=== PATIENT | female | born 1985 | race African-American/Black ===

== ENCOUNTER → 2016-06-28 | Outpatient (CLI) | payer SELFPAY | LOC: RAD 09:30 | PROVIDERS: ATTEND Nurse Practitioner Women's Health | DX: Z34.82 Encounter for supervision of other normal pregnancy, second trimester (principal) | CPT/HCPCS: 76805 ==

== ENCOUNTER 2016-10-03 08:54 | Inpatient (IN) | payer MEDICAID ==
[2016-10-03] MEDS ORDERED: MEASLES,MUMPS&RUBELLA VACC/PF 0.5 ML VIAL SUBCUT PRN (09:16)
[2016-10-03] MEDS ORDERED: OXYTOCIN/NORMAL SALINE 1,000 ML IV PRN (09:16)
[2016-10-03] MEDS ORDERED: DIPH/PERTUSS(ACELL)/TETANUS VAC/PF 0.5 ML SYR (>=10YO) IM PRN (09:16)
[2016-10-03] MEDS ORDERED: BENZOCAINE/MENTHOL AEROSOL SPRAY 56 ML TOP PRN (09:16)
[2016-10-03] MEDS ORDERED: ZOLPIDEM TARTRATE 5 MG TABLET PO PRN (09:16)
[2016-10-03] MEDS ORDERED: DIBUCAINE 1% OINTMENT 28 GM TP PRN (09:16)
[2016-10-03] MEDS ORDERED: ACETAMINOPHEN WITH CODEINE #3 TABLET PO PRN (09:16)
[2016-10-03] MEDS ORDERED: ACETAMINOPHEN 325 MG TABLET ONE (09:53)
[2016-10-03] MEDS ORDERED: ACETAMINOPHEN WITH CODEINE #3 TABLET ONE (10:00)
[2016-10-03 10:09] LABS: ABSOLUTE LYMPHOCYTES (AUTO) 1.1 10^3/uL (0.5-4.7); ABSOLUTE MONOCYTES (AUTO) 0.4 10^3/uL (0.1-1.4); ABSOLUTE NEUT (AUTO) 3.3 10^3/uL (1.7-8.2); BASOPHILS % (AUTO) 0.1 % (0-2); EOSINOPHILS % (AUTO) 0.1 % (0-6); HEMATOCRIT 33.9 % (36.0-47.0); HEMOGLOBIN 11.1 g/dL (12.0-15.5); HGB HCT DIFFERENCE -0.6; LYMPHOCYTES % (AUTO) 22.5 % (13-45); MEAN CORPUSCULAR HEMOGLOBIN 25.9 pg (27.0-33.4); MEAN CORPUSCULAR HGB CONC 32.8 g/dL (32.0-36.0); MEAN CORPUSCULAR VOLUME 79 fl (80-97); MONOCYTES % (AUTO) 8.3 % (3-13); RED CELL DISTRIBUTION WIDTH 15.8 % (11.5-14.0); WHITE BLOOD COUNT 4.8 10^3/uL (4.0-10.5)
[2016-10-03] MEDS ORDERED: OXYTOCIN 10 UNIT/ML VIAL ONE (10:15)
[2016-10-03] MEDS ORDERED: MISOPROSTOL 0.2 MG TABLET ONE (10:15)
--- NOTE | 2016-10-03 12:05 | Delivery Summary ---
Del Sum A-C Datetime Report Generated by CPN: 10/03/2016 12:05 DELIVERY PERSONNEL DELIVERY PERSONNEL: [id number] Delivery Doctor:: Nirmala Woody CNM Labor and Delivery Nurse:: Ellen Simental RN Labor and Delivery Nurse:: NERI Garcia Talcer/[facility]: Shelby Reese [facility] II MATERNAL INFORMATION Delivery Anesthesia: None Medications After Delivery: Pitocin 10 Units IM Estimated Blood Loss (ml): 200 Maternal Complications: Precipitous Labor (<3hrs) Provider Comments: SVDVM over intact perineum, infant vigorous, to mothers abd, cord clamped x2. Placenta intact via spencer. Minimal EBL 200. Apgars 9,10. Pitocin 10mg given IM. Mother and stable. LABOR SUMMARY EDC: 09/30/2016 00:00 No. Babies in Womb: 1 Attempted: No Labor Anesthesia: None LABOR INFORMATION Reason for Induction: Not Applicable Onset of Labor: 10/03/2016 07:30 Complete Dilatation: 10/03/2016 08:46 Oxytocin: N/A Group B Beta Strep: positive Antibiotics # of Doses: 0 Steroids Given: None Reason Steroids Not Administered: Not Applicable MEMBRANES Membranes Rupture Method: Spontaneous Rupture of Membranes: 10/03/2016 07:30 Length of Rupture (hr): 1.28 Amniotic Fluid Color: Clear Amniotic Fluid Amount: Moderate STAGES OF LABOR Stage 1 hr: 1 Stage 1 min: 16 Stage 2 hr: 0 Stage 2 min: 1 Stage 3 hr: 0 Stage 3 min: 4 Total Time in Labor hr: 1 Total Time in Labor min: 21 VAGINAL DELIVERY Episiotomy: None Laceration Extension: N/A Laceration Type: None Laceration Repair: Not Applicable Laceration Repair Note: No lacerations Sponge Count Correct: N/A Sharps Count Correct: N/A CSECTION DELIVERY Primary Indication: N/A Secondary Indication: N/A CSection Urgency: N/A CSection Incidence: N/A Labor: N/A Elective: N/A CSection Incision: N/A BABY A INFORMATION Delivery Date/Time: 10/03/2016 08:47 Method of Delivery: Vaginal Born in Route : No : N/A Forceps: N/A Vacuum Extraction: N/A Shoulder Dystocia : No PRESENTATION/POSITION BABY A Presentation: Cephalic Cephalic Presentation: Vertex Vertex Position: Left Occipital Anterior Breech Presentation: N/A PLACENTA INFORMATION BABY A Placenta Delivery Time : 10/03/2016 08:51 Placenta Method of Delivery: Spontaneous Placenta Status: Delivered SCORES BABY A Heart Rate 1 min: >100 bpm Resp Effort 1 min: Good Cry Reflex Irritability 1 min: Cough or Sneeze or Pulls Away Muscle Tone 1 min: Active Motion Color 1 min: Body Weinert, Extremities Blue Resuscitation Effort 1 min: Tactile Stimulation SCORE 1 MIN: 9 Heart Rate 5 min: >100 bpm Resp Effort 5 min: Good Cry Reflex Irritability 5 min: Cough or Sneeze or Pulls Away Muscle Tone 5 min: Active Motion Color 5 min: Completely Weinert Resuscitation Effort 5 min: N/A SCORE 5 MIN: 10 INFORMATION BABY A Gestational Age at Delivery: 40.3 Gestational Status: Full Term- 39- 40.6 Weeks Infant Outcome : Liveborn Infant Condition : Stable Infant Sex: Male IDENTIFICATION BABY A Verification Date/Time: 10/03/2016 09:14 ID Band Number: [id number] Mother's Name Verified: Yes RN Verifying Infant: Lydia Simental RN/ LKavin Escalante RN WEIGHT/LENGTH BABY A Infant Birthweight (gm): 4055 Infant Weight (lb): 8 Weight (oz): 15 Length (in): 23.00 Infant Length (cm): 58.42 CORD INFORMATION BABY A No. 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 Veronika RN Transferred To: Remains with Mother BABY B INFORMATION : N/A SIGNATURES Assignment: Melida Craig MD Signature: with User ID: Gina : with User ID: Gina : I was personally available for consultation and serving as supervising physician for the MLP.
[2016-10-03] MEDS: SENNOSIDES/DOCUSATE 8.6-50 MG 1 EACH TABLET PO SCH (15:52)
[2016-10-03] MEDS: PRENATAL VITAMIN W-O CA NO5/FE FUMARATE/FA CAPSULE PO SCH (15:52)
[2016-10-03] MEDS: DOCUSATE SODIUM 100 MG CAPSULE PO SCH ×2 (15:52→17:31)
[2016-10-03] MEDS: FERROUS SULFATE 325 MG TABLET PO SCH ×2 (15:52→17:30)
[2016-10-03] MEDS: IBUPROFEN 800 MG TABLET PO SCH ×2 (15:52→21:06)
[2016-10-03] MEDS: ACETAMINOPHEN WITH CODEINE #3 TABLET PO PRN (16:25)
--- NOTE | 2016-10-03 16:46 | L&D Flow Sheet ---
LD Flowsheet Datetime Report Generated by CPN: 10/03/2016 16:45 Datetime: 10/03/2016 12:17 Vital Signs Stage of : Recovery (Rucsandra Kamille, RN) Datetime: 10/03/2016 12:07 Vital Signs Stage of : Recovery (Baciliomargarita Simental, BHAVYA) NBP Sys/Kenia/Mean (mmHg): 149 (QS system process) : 72 (QS system process) : 103 (QS system process) Pulse: 62 (QS system process) Respirations: 18 (Wagnerandra Simental, ) Pain Pain Scale: 2 (Ellen Simental, BHAVYA) Pain Presence: Intermittent (Ellen Simental, RN) Pain Type: Cramping (Wagnerandra Simental, RN) Pain Location: Abdomen (Ellen Simental, RN) Pain Goal: 3 (Wagnerandra Simental, RN) Pain Relief Measures: Comfort Measures (Ellen Simental, RN) Datetime: 10/03/2016 11:51 Vital Signs Stage of : Recovery (Rucsandra Kamille, RN) NBP Sys/Kenia/Mean (mmHg): 150 (QS system process) : 67 (QS system process) : 96 (QS system process) Pulse: 81 (QS system process) Respirations: 16 (Rucsandra Kamille, RN) Pain Pain Scale: 2 (Rucsandra Kamille, RN) Pain Presence: Intermittent (Rucsandra Kamille, RN) Pain Type: Cramping (Rucsandra Kamille, RN) Pain Location: Abdomen (Ellen Kamille, RN) Pain Goal: 3 (Wagnerrachel Kamille, RN) Pain Relief Measures: Comfort Measures (Bacilioalyserachel Kamille, RN) Datetime: 10/03/2016 11:45 Vital Signs Stage of : Recovery (Ellen Kamille, RN) Datetime: 10/03/2016 11:40 Vital Signs Stage of : Recovery (Rucsandra Kamille, RN) NBP Sys/Kenia/Mean (mmHg): 148 (QS system process) : 70 (QS system process) : 101 (QS system process) Pulse: 81 (QS system process) Pain Pain Scale: 2 (Rucsandra Kamille, RN) Pain Presence: Intermittent (Rucsandra Kamille, RN) Pain Type: Cramping (Rucsandra Kamille, RN) Pain Location: Abdomen (Rucsandra Kamille, RN) Pain Goal: 3 (Rucsandra Kamille, RN) Pain Relief Measures: Comfort Measures (Rucsandra Kamille, RN) Datetime: 10/03/2016 11:36 Vital Signs Stage of : Recovery (Ellen Simental RN) NBP Sys/Kenia/Mean (mmHg): 147 (QS system process) : 71 (QS system process) : 101 (QS system process) Pulse: 61 (QS system process) Respirations: 18 (Ellen Simental, ) Pain Pain Scale: 2 (Wagnerandra Simental, ) Pain Pres[facility]: [facility]termittent ([facility] Pain Type: Cramping (Bacilioandra Simental, RN) Pain Location: Abdomen (Baciliomargarita Simental, RN) Pain Goal: 3 (Bacilioandra Simental, RN) Pain Relief Measures: Comfort Measures (Bacilioandra Simental, RN) Datetime: 10/03/2016 11:21 Vital Signs Stage of : Recovery (Ellen Simental RN) NBP Sys/Kenia/Mean (mmHg): 150 (QS system process) : 80 (QS system process) : 106 (QS system process) Pulse: 57 (QS system process) Pain Pain Scale: 2 (Ellen Simental RN) Pain Presence: Intermittent (Ellen Simental RN) Pain Type: Cramping (Ellen Simental, BHAVYA) Pain Location: Abdomen (Ellen Simental RN) Pain Goal: 3 (Ellen Simental RN) Pain Relief Measures: Comfort Measures (Rucsandra Kamille, RN) Datetime: 10/03/2016 11:06 Vital Signs Stage of : Recovery (Ellen Simental RN) NBP Sys/Kenia/Mean (mmHg): 150 (QS system process) : 72 (QS system process) : 104 (QS system process) Pulse: 71 (QS system process) Pain Pain Scale: 2 (Ellen Simental RN) Pain Presence: Intermittent (Ellen Simental RN) Pain Type: Cramping (Rucsandra Kamille, RN) Pain Location: Abdomen (Ellen Simental, RN) Pain Goal: 3 (Rucsandra Kamille, RN) Pain Relief Measures: Comfort Measures (Ellen Simental, RN) Datetime: 10/03/2016 11:02 NBP Sys/Kenia/Mean (mmHg): 189 (QS system process) : 129 (QS system process) : 145 (QS system process) Pulse: 77 (QS system process) Datetime: 10/03/2016 11:00 Vital Signs Stage of : Recovery (Rucsandra Kamille, RN) Temperature (F): 99.2 (Ellen Simental, RN) Temperature (C): 37.3 (QS system process) Datetime: 10/03/2016 10:23 Vital Signs Stage of : Recovery (Ellen Simental, RN) NBP Sys/Kenia/Mean (mmHg): 137 (QS system process) : 91 (QS system process) : 106 (QS system process) Pulse: 68 (QS system process) Pain Pain Scale: 2 (Rucsandra Kamille, RN) Pain Presence: Intermittent (Rucsandra Kamille, RN) Pain Type: Cramping (Rucsandra Kamille, RN) Pain Location: Abdomen (Rucsandra Kamille, RN) Pain Goal: 3 (Rucsandra Kamille, RN) Datetime: 10/03/2016 10:15 Vital Signs Stage of : Recovery (Rucsandra Kamille, RN) Datetime: 10/03/2016 10:12 Vital Signs Stage of : Recovery (Ellen Simental, RN) Datetime: 10/03/2016 10:08 Vital Signs Stage of : Recovery (Ellen Simental, RN) NBP Sys/Kenia/Mean (mmHg): 138 (QS system process) : 89 (QS system process) : 109 (QS system process) Pulse: 67 (QS system process) Respirations: 18 (Ellen Simental, RN) Pain Pain Scale: 2 (Rucsandra Kamille, RN) Pain Presence: Intermittent (Rucsandra Kamille, RN) Pain Type: Cramping (Rucsandra Kamille, RN) Pain Location: Abdomen (Rucsandra Kamille, RN) Pain Goal: 3 (Rucsandra Kamille, RN) Datetime: 10/03/2016 10:00 Vital Signs Stage of : Recovery (Rucsandra Kamille, RN) Pain Pain Scale: 2 (Rucsandra Kamille, RN) Pain Presence: Intermittent (Rucsandra Kamille, RN) Pain Type: Cramping (Rucsandra Kamille, RN) Pain Location: Abdomen (Rucsandra Kamille, RN) Pain Goal: 3 (Rucsandra Kamille, RN) Pain Relief Measures: Pain Medication Given (Rucsandra Kamille, RN) Datetime: 10/03/2016 09:53 Vital Signs Stage of : Recovery (Rucsandra Kamille, RN) NBP Sys/Kenia/Mean (mmHg): 139 (QS system process) : 84 (QS system process) : 102 (QS system process) Pulse: 62 (QS system process) Pain Pain Scale: 2 ([facility] Kamille, ) Pain Presence: Intermittent ([facility], ) Pain Type: Cramping ([facility], ) Pain Location: Abdomen ([facility]) Pain Goal: 3 ([facility], ) Pain Relief Measures: Comfort Measures (Annotations: pain medication requested. ) ([facility], ) Datetime: 10/03/2016 09:39 Vital Signs Stage of : Recovery ([facility] [place] [facility], ) NBP Sys/Kenia/Mean (mmHg): 139 (QS system process) : 73 (QS system process) : 97 (QS system process) Pulse: 63 (QS system process) Respirations: 18 ([facility] [place] [facility], ) Pain Pain Scale: 2 ([facility], ) Pain Presence: Intermittent ([facility], ) Pain Type: Cramping ([facility], ) Pain Location: Abdomen ([facility], ) Pain Goal: 3 ([facility] [place], ) Pain Relief Measures: Comfort Measures ([facility], ) Datetime: 10/03/2016 09:38 Vital Signs Stage of : Recovery (Rucsandra Kamille, RN) Datetime: 10/03/2016 09:37 Vital Signs Stage of : Recovery (Rucsandra Kamille, RN) Datetime: 10/03/2016 09:23 Vital Signs Stage of : Recovery (Ellen Simental RN) NBP Sys/Kenia/Mean (mmHg): 138 (QS system process) : 74 (QS system process) : 99 (QS system process) Pulse: 64 (QS system process) Respirations: 18 (Ellen Simental RN) Temperature (F): 98.7 ([facility] RN) Temperature (C): 37.1 (QS system process) Pain Pain Scale: 2 (Ellen Simental RN) Pain Presence: Intermittent (Ellen Simental RN) Pain Type: Cramping (Ellen Simental, BHAVYA) Pain Location: Abdomen (Ellen Simental RN) Pain Goal: 3 (Baciliomargarita Simental RN) Pain Relief Measures: Comfort Measures (Ellen Simental RN) Datetime: 10/03/2016 09:08 Vital Signs Stage of : Recovery (Ellen Simental, BHAVYA) NBP Sys/Kenia/Mean (mmHg): 134 (QS system process) : 74 (QS system process) : 98 (QS system process) Pulse: 54 (QS system process) Pain Pain Scale: 2 (Ellen Simental RN) Pain Presence: Intermittent (Ellen Simental RN) Pain Type: Cramping (Ellen Simental RN) Pain Location: Abdomen (Rucsandra Kamille, RN) Pain Goal: 3 (Rucsandra Kamille, RN) Pain Relief Measures: Comfort Measures (Rucsandra Simental, RN) Datetime: 10/03/2016 08:53 Vital Signs Stage of : Recovery (Rucsandra Kamille, RN) NBP Sys/Kenia/Mean (mmHg): 138 (QS system process) : 91 (QS system process) : 108 (QS system process) Pulse: 73 (QS system process) Respirations: 18 (Rucsandra Kamille, RN) Pain Pain Scale: 2 (Ellen Simental RN) Pain Presence: Intermittent (Ellen Simental RN) Pain Type: Cramping (Ellen Simental RN) Pain Location: Abdomen (Ellen Simental RN) Pain Goal: 3 (Ellen Simental RN) Pain Relief Measures: Comfort Measures (Ellen Simental RN) Datetime: 10/03/2016 08:52 Vital Signs Stage of : Recovery (Ellen Simental RN) Membranes Ruptured Date/Time: 10/03/2016 07:30 (Ellen Simental RN) Membranes Rupture Method: Spontaneous (Ellen Simental RN) Amniotic Fluid Color: Clear (Ellen Simental RN) Amniotic Fluid Amount: Moderate (Ellen Simental RN) Datetime: 10/03/2016 08:48 Vital Signs Stage of : Recovery (Rucsandra Kamille, RN) Datetime: 10/03/2016 08:47 Stage 2 Stage 2 Comments: of viable baby boy, see delivery summary (Ellen Simental, RN) Datetime: 10/03/2016 08:46 Vaginal Exam Dilatation (cm): 10.0 (Ellen Simental, BHAVYA) Effacement (%): 100 (Ellen Simental RN) Station: 3 (Ellen Simental RN) Exam by: Bebe Woody CNM (Ellen Simental, BHAVYA) Vaginal Exam Comments: RayshawnKavin Woody CNM (Ellen Simental, BHAVYA) Communication Communication Comments: Danica Woody CNKristen at bedside for delivery (Ellen Simental, BHAVYA) Datetime: 10/03/2016 08:44 Vaginal Exam Dilatation (cm): 9.5 (Ellen Simental RN) Effacement (%): 100 (Ellen Simental RN) Station: 1 (Ellen Simental RN) Exam by: Danica Woody JERRY (Ellen Simental RN) Vaginal Bleeding: None (Ellen Simental RN) Datetime: 10/03/2016 08:43 Communication Communication Comments: Pt arrives to unit complaining of needing to push, Pt changed into gown. (Ellen Simental RN)
--- NOTE | 2016-10-03 16:46 | L&D General Admission ---
General Admit Datetime Report Generated by CPN: 10/03/2016 16:45 INFORMATION Patient Age: 30 (10/03/2016 08:55:QS system process) Patient Age: 30 (10/03/2016 08:52:Ellen Simental RN) EDC: 09/30/2016 00:00 (10/03/2016 08:52:Ellen Simental RN) : 6 (10/03/2016 08:52:Ellen Simental RN) Para: 5 (10/03/2016 08:52:Ellen Simental RN) Term: 4 (10/03/2016 08:52:Ellen Simental RN) : 1 (10/03/2016 08:52:Ellen Simental RN) Spontaneous Abortions: 0 (10/03/2016 08:52:Ellen Simental RN) Induced Abortions: 0 (10/03/2016 08:52:Ellen Simental RN) Livin (10/03/2016 08:52:Ellen Simental RN) Cesareans: 0 (10/03/2016 08:52:Ellen Simental RN) VBACs: 0 (10/03/2016 08:52:Ellen Simental RN) Ectopic: 0 (10/03/2016 08:52:Ellen Simental RN) Multiple Births: 0 (10/03/2016 08:52:Ellen Simental RN) Baby, Number in Womb: 1 (10/03/2016 08:52:Ellen Simental RN) CARE Primary Games Manager: [facility] (10/03/2016 08:52:Ellen Simental RN) Games Manager Other: [facility] (10/03/2016 08:52:Ellen Simental RN) Month of 1st Visit: 27 weeks (10/03/2016 08:52:Ellen Simental RN) Adequate Care: No (10/03/2016 08:52:Ellen Simental RN) Height (in): 68 (10/03/2016 12:21:QS system process) Height (in): 68 (10/03/2016 09:56:QS system process) Height (in): 27 (10/03/2016 08:52:QS system process) ALLERGIES Medication Allergy: No (10/03/2016 08:52:Ellen Simental RN) Medication Allergies: No Known Allergies (10/03/2015) (10/03/2016 08:55:QS system process) Latex Allergy: No Latex Allergies (10/03/2016 08:52:Ellen Simental RN) COMMUNICATION Primary Language: Spanish (10/03/2016 08:52:Ellen Simental RN) Medical Tx Preferred Language: Spanish (10/03/2016 08:52:Mindy Solis RN) Communication Barrier(s): None (10/03/2016 08:52:Ellen Simental RN) DEMOGRAPHICS Address: [address] [place] [address] (10/03/2016 08:55:QS system process) Address: [address] [place] [address] (10/03/2016 08:52:Ellen Simental RN) Zipcode: [address] (10/03/2016 08:55:QS system process) Zipcode: [address] (10/03/2016 08:52:Ellen Simental RN) County: [place] (10/03/2016 08:52:Ellen Simental RN) Home (10/03/2016 08:55:QS system process) Home (10/03/2016 08:52:Ellen Simental RN) SSN: [id number] (10/03/2016 08:55:QS system process) Next of Kin Name: JANET CABRERA (10/03/2016 08:55:QS system process) Next of Kin Name: Janet Cabrera (10/03/2016 08:52:Ellen Simental RN) Next of Kin (10/03/2016 08:55:QS system process) Next of Kin (10/03/2016 08:52:Ellen Simental RN) Next of Kin Relationship: MO (10/03/2016 08:55:QS system process) Next of Kin Relationship: Mother (10/03/2016 08:52:Ellen Simental RN) Date of : 1985 (10/03/2016 08:55:QS system process) Date of : 1985 (10/03/2016 08:52:Ellen Simental RN) Marital Status: Single (10/03/2016 08:55:QS system process) Sex: Female (10/03/2016 08:55:QS system process) Sex: Female (10/03/2016 08:52:Ellen Simental RN) Race: (10/03/2016 08:55:QS system process) Ethnicity: Non- or (10/03/2016 08:55:QS system process) Ethnicity: Non- or (10/03/2016 08:52:Ellen Simental RN) Congregation: None (10/03/2016 08:55:QS system process) DRUG AND ALCOHOL USE Alcohol: No (10/03/2016 08:52:Ellen Simental RN) Cigarettes: Never Smoker. 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: [facility] (10/03/2016 08:52:Ellen Simental RN) Feeding Preference: Formula (10/03/2016 08:52:Ellen Simental RN) Benefit of Breast Feed Discussed: Yes (10/03/2016 08:52:Ellen Simental RN) Circumcision: Yes (10/03/2016 08:52:Ellen Simental RN) Classes Attended: No (10/03/2016 08:52:Ellen Simental RN) Tubal Ligation: Yes (10/03/2016 08:52:lElen Simental RN) Tubal Authorization Signed: Yes (10/03/2016 08:52:Ellen Simental RN) Consent: N/A (10/03/2016 08:52:Ellen Simental RN) Consent Signed: N/A (10/03/2016 08:52:Ellen Simental RN) Pain Management Plans: None (10/03/2016 08:52:Ellen Simental RN) Plans for Labor and Delivery: None (10/03/2016 08:52:Ellen Simental RN) Support Person: Janet (10/03/2016 08:52:Ellen Simental RN) Support Person Relationship: Mother (10/03/2016 08:52:Ellen Simental RN) Cultural/Spritual Practice: No (10/03/2016 08:52:Ellen Simental RN) Spir/Cult Dietary Needs: No (10/03/2016 08:52:Ellen Simental RN) LIVING SITUATION/DISCHARGE PLAN Living Arrangements: House (10/03/2016 08:52:Ellen Simental RN) Adequate Access to:: Electric; Heat; Refrigeration; Plumbing/Running water; Phone; Transportation (10/03/2016 08:52:Ellen Simental RN) WIC Program: No (10/03/2016 08:52:Ellen Simental RN) Discharge Electronic Court Recorder Person: Janet (10/03/2016 08:52:Ellen Simental RN) Person to Help after Discharge: Janet (10/03/2016 08:52:Ellen Simental RN) Currently Using Commun Resources: Yes (10/03/2016 08:52:Ellen Simental RN) Specify Current Resource Used: Medicaid (10/03/2016 08:52:Ellen Simental RN) Outside Agency/Vending Machine Filler: No (10/03/2016 08:52:Ellen Simental RN) Car Seat for Discharge: Yes (10/03/2016 08:52:Ellen Simental RN) Adoption Requested: No (10/03/2016 08:52:Ellen Simental RN) Pt Contact w/ Post : N/A (10/03/2016 08:52:Ellen Simental RN) LABS Blood Type: O Positive (10/03/2016 08:52:Geeta Craig RN) Antibody Screen: negative (10/03/2016 08:52:Geeta Craig RN) Hemoglobin: 11.1 L (10/03/2016 09:39:QS system process) Hematocrit: 33.9 L (10/03/2016 09:39:QS system process) MCV: 79 L (10/03/2016 09:39:QS system process) Group Beta Strep: positive (10/03/2016 08:52:Ellen Simental RN) Gonorrhea: Negative (10/03/2016 08:52:Geeta Craig RN) Chlamydia: Negative (10/03/2016 08:52:Geeta Craig RN) RPR/VDRL: Nonreactive (10/03/2016 08:52:Geeta Craig RN) HIV Results: negative (10/03/2016 08:52:Geeta Craig RN) Hepatitis B: Negative (10/03/2016 08:52:Geeta Craig RN) Rubella: Non-Immune (10/03/2016 08:52:Geeta Craig RN) OB/PREVIOUS HISTORY Previous Procedures: Ultrasound (10/03/2016 08:52:Ellen Simental RN) Current Procedures: Ultrasound; NST (10/03/2016 08:52:Ellen Simental RN) History of Previous : No (10/03/2016 08:52:Ellen Simental RN) History of Gestational Diabetes: No (10/03/2016 08:52:Ellen Simental RN) History of PIH: Yes (10/03/2016 08:52:Ellen Simental RN) History of Incompetent Cervix: No (10/03/2016 08:52:Ellen Simental RN) History of Placenta Previa/Abrup: No (10/03/2016 08:52:Ellen Simental RN) History of Macrosomia: No (10/03/2016 08:52:Ellen Simental RN) History of IUGR: No (10/03/2016 08:52:Ellen Simental RN) History of Hemorrhage: No (10/03/2016 08:52:Ellen Simental RN) History of Loss/Stillborn: No (10/03/2016 08:52:Ellen Simental RN) History of : No (10/03/2016 08:52:Ellen Simental RN) History of D (Rh) Sensitization: No (10/03/2016 08:52:Ellen Simental RN) History Recurrent Loss/Stillborn: No (10/03/2016 08:52:Ellen Simental RN) History Depression/PP Depression: No (10/03/2016 08:52:Ellen Simental RN) History of Uterine Anomaly/LYUDMILA: No (10/03/2016 08:52:Ellen Simental RN) History of Infertility: No (10/03/2016 08:52:Ellen Simental RN) History of ART Treatment: No (10/03/2016 08:52:Ellen Simental RN) History of LYUDMILA: No (10/03/2016 08:52:Ellen Simental RN) Comments Obstetrical History: G1- 2006 37 wks hx of Pre E G2- 2009 39 wks G3- 2010 40 wks G4- 2012 39 wks G5- 2013 39 wks G6- Current (10/03/2016 08:52:Ellen Simental RN) MEDICAL HISTORY Med Hx Diabetes: No (10/03/2016 08:52:Ellen Simental RN) Med Hx Hypertension: No (10/03/2016 08:52:Ellen Simental RN) Med Hx Heart Disease: No (10/03/2016 08:52:Ellen Simental RN) Med Hx Autoimmune Disorder: No (10/03/2016 08:52:Ellen Simental RN) Med Hx Kidney Disease/UTI: No (10/03/2016 08:52:Ellen Simental RN) Med Hx Neurologic/Epilepsy: No (10/03/2016 08:52:Ellen Simental RN) Med Hx Psychiatric Disorders: No (10/03/2016 08:52:Ellen Simental RN) Med Hx Hepatitis/Liver Disease: No (10/03/2016 08:52:Ellen Simental RN) Med Hx Varicosities/Phlebitis: No (10/03/2016 08:52:Ellen Simental RN) Med Hx Thyroid Dysfunction: No (10/03/2016 08:52:Ellen Simental RN) Med Hx Trauma/Violence: No (10/03/2016 08:52:Ellen Simental RN) Med Hx Blood Transfusion: No (10/03/2016 08:52:Ellen Simental RN) Med Hx Pulmonary (Asthma,TB): No (10/03/2016 08:52:Ellen Simental RN) Med Hx Breast: No (10/03/2016 08:52:Ellen Simental RN) Med Hx HIGH RIGGER Surgery: No (10/03/2016 08:52:Ellen Simental RN) Med Hx Hospitalization/Surgery: No (10/03/2016 08:52:Ellen Simental RN) Med Hx Anesthetic Complications: No (10/03/2016 08:52:Ellen Simental RN) Med Hx Abnormal Pap Smear: No (10/03/2016 08:52:Ellen Simental RN) Other Medical Diseases: No (10/03/2016 08:52:Ellen Simental RN) Med Hx Significant Family Hx: No (10/03/2016 08:52:Ellen Simental RN) INFECTIOUS HISTORY Inf Hx Gonorrhea: No (10/03/2016 08:52:Ellen Simental RN) Inf Hx Chlamydia: No (10/03/2016 08:52:Ellen Simental RN) Inf Hx Syphilis: No (10/03/2016 08:52:Ellen Simental RN) Inf Hx HIV/AIDS: No (10/03/2016 08:52:Ellen Simental RN) Inf Hx Human Papilloma Virus: No (10/03/2016 08:52:Ellen Simental RN) Inf Hx Pt/Partner Genital Herpes: No (10/03/2016 08:52:Ellen Simental RN) Inf Hx Tuberculosis/Exposure: No (10/03/2016 08:52:Ellen Simental RN) Inf Hx Hepatitis B,C: No (10/03/2016 08:52:Ellen Simental RN) Inf Hx Rash or Viral Illness: No (10/03/2016 08:52:Ellen Simental RN) GENETIC HISTORY Gen Hx Age >=35 at SHAHEED: No (10/03/2016 08:52:Ellen Simental RN) Gen Hx Thalassemia: No (10/03/2016 08:52:Ellen Simental RN) Gen Hx Congenital Heart Defect: No (10/03/2016 08:52:Ellen Simental RN) Gen Hx Neural Tube Defect: No (10/03/2016 08:52:Ellen Simental RN) Gen Hx Down's Syndrome: No (10/03/2016 08:52:Ellen Simental RN) Gen Hx Russell-Sachs: No (10/03/2016 08:52:Ellen Simental RN) Gen Hx Delfino: No (10/03/2016 08:52:Ellen Simental RN) Gen Hx Familial Dysautonomia: No (10/03/2016 08:52:Ellen Simental RN) Gen Hx Sickle Cell Disease/Trait: No (10/03/2016 08:52:Ellen Simental RN) Gen Hx Hemophilia/Blood Disorder: No (10/03/2016 08:52:Ellen Simental RN) Gen Hx Muscular Dystrophy: No (10/03/2016 08:52:Ellen Simental RN) Gen Hx Cystic Fibrosis: No (10/03/2016 08:52:Ellen Simental RN) Gen Hx Huntingtons Chorea: No (10/03/2016 08:52:Ellen Simental RN) Gen Hx Mental Retardation/Autism: No (10/03/2016 08:52:Ellen Simental RN) Gen Hx Tested for Fragile X: No (10/03/2016 08:52:Ellen Simental RN) Gen Hx Other Inher/Chromosomal: No (10/03/2016 08:52:Ellen Simental RN) Gen Hx Maternal Metabolic DO: No (10/03/2016 08:52:Ellen Simental RN) Gen Hx Pt Father or FOB Defect: No (10/03/2016 08:52:Ellen Simental RN) Gen Hx Other Genetic History: No (10/03/2016 08:52:Ellen Simental RN) Gen Hx Drugs/Meds since LMP: No (10/03/2016 08:52:Ellen Simental RN)
--- NOTE | 2016-10-03 16:46 | L&D Discharge Summary ---
OB Discharge Summary Datetime Report Generated by CPN: 10/03/2016 16:45 DISCHARGE DIAGNOSIS Gestation: 40.3 Number of Babies in Womb: 1 Parity: 5
[2016-10-03 21:59] LABS: URINE BARBITURATES SCREEN NEGATIVE; URINE METHADONE SCREEN NEGATIVE; URINE PHENCYCLIDINE SCREEN NEGATIVE
[2016-10-03 22:02] LABS: URINE OPIATES LOW UNCONFIRMED POSITIVE
--- NOTE | 2016-10-03 22:46 | L&D Discharge Summary ---
OB Discharge Summary Datetime Report Generated by CPN: 10/03/2016 22:45 DISCHARGE DIAGNOSIS Gestation: 40.3 Number of Babies in Womb: 1 Parity: 5
--- NOTE | 2016-10-03 22:46 | L&D Current Admission ---
Current Admit Datetime Report Generated by CPN: 10/03/2016 22:45 ADMISSION INFORMATION Person(s) Allowed during Admit: family (10/03/2016 08:48:Ellen Simental RN) Current Admit Date/Time: 10/03/2016 08:43 (10/03/2016 08:48:Ellen Simental RN) Reason for Admission: Onset of Labor (10/03/2016 08:48:Ellen Simental RN) Chief Complaint: Contractions (10/03/2016 08:48:Ellen Simental RN) EGA per Dates: 40.3 (10/03/2016 08:52:QS system process) Method of Arrival: Wheelchair (10/03/2016 08:48:Ellen Simental RN) Admitted From: Home (10/03/2016 08:48:Ellen Simental RN) Reason for Induction: Not Applicable (10/03/2016 08:48:Ellen Simental RN) Records Available: Yes (10/03/2016 08:48:Ellen Simental RN) General Admission Information: Reviewed (10/03/2016 08:48:Ellen Simental RN) General Admission Reviewed By: Lydia Simental RN (10/03/2016 08:48:Ellen Simental RN) BELONGINGS/ADVANCED DIRECTIVES Other Belongings: see valuables consent form (10/03/2016 08:48:Ellen Simental RN) Disposition of Belongings: Kept with Patient (10/03/2016 08:48:Ellen Simental RN) Advance Direct for Healthcare: No, and Wants No Information (10/03/2016 08:48:Ellen Simental RN) Durable Power of Disease Education Specialist: No (10/03/2016 08:48:Ellen Simental RN) Living Will: No (10/03/2016 08:48:Ellen Simental RN) Organ Donor: Yes (10/03/2016 08:48:Ellen Simental RN) Pt Rights Information Given: Yes (10/03/2016 08:48:Ellen Simental RN) Pt Understands Pt Rights: Yes (10/03/2016 08:48:Ellen Simental RN) LEARNING ASSESSMENT Knowledge Level: Understands L_D Process; Understands Care Activities; Understands Diagnosis (10/03/2016 08:48:Ellen Simental RN) Barriers to Learning: None (10/03/2016 08:48:Ellen Simental RN) Learning Readiness: Motivated (10/03/2016 08:48:Ellen Simental RN) Learns Best By: 1 to 1 Instruction; Reading; Videos; Group Discussion; Demonstration (10/03/2016 08:48:Ellen Simental RN) Learning Needs: Labor and Delivery Process; Pain Management; Symptoms to Report; Treatment Plan; Medication; Diagnosis; Nutrition; Equipment; Care; Community Resources (10/03/2016 08:48:Ellen Simental RN) DOMESTIC VIOLANCE SCREENING Dom Viol Threatened/Hurt: No (10/03/2016 08:48:Ellen Simental RN) Hx of Abuse/Neglect past 2yrs: No (10/03/2016 08:48:Ellen Simental RN) Feel Unsafe Going Home: No (10/03/2016 08:48:Ellen Simental RN) Addt'l Observ Indicating Abuse: No (10/03/2016 08:48:Ellen iSmental RN) Reason Unable to Complete Screen: No Opportunity to Talk Privately (10/03/2016 08:48:Ellen Simental RN) Considered Personal Harm/Suicide: No (10/03/2016 08:48:Ellen Simental RN) NUTRITIONAL/FUNCTIONAL SCREENING Problem with Appetite >5 Days: No (10/03/2016 08:48:Ellen Simental RN) Chew/Swallow Difficulties: No (10/03/2016 08:48:Ellen Simental RN) Inappropriate Wt Gain/Loss: No (10/03/2016 08:48:Ellen Simental RN) Presence Skin Breakdown/Ulcer: No (10/03/2016 08:48:Ellen Simental RN) Special Diet: No (10/03/2016 08:48:Ellen Simental RN) Pt Requests Molding Cutter Visit: No (10/03/2016 08:48:Ellen Simental RN) Hx of Any of the Following?: N/A (10/03/2016 08:48:Ellen Simental RN) New Diagnosis of: N/A (10/03/2016 08:48:Ellen Simental RN) Requires Assist w/Ambulation: No (10/03/2016 08:48:Ellen Simental RN) Uses Assist Device to Ambulate: No (10/03/2016 08:48:Ellen Simental RN) Pt Requires Help w/ADL's: No (10/03/2016 08:48:Ellen Simental RN)
--- NOTE | 2016-10-03 22:46 | L&D General Admission ---
General Admit Datetime Report Generated by CPN: 10/03/2016 22:45 INFORMATION Patient Age: 30 (10/03/2016 08:55:QS system process) Patient Age: 30 (10/03/2016 08:52:Ellen Simental RN) EDC: 09/30/2016 00:00 (10/03/2016 08:52:Ellen Simental RN) : 6 (10/03/2016 08:52:Ellen Simental RN) Para: 5 (10/03/2016 08:52:Ellen Simental RN) Term: 4 (10/03/2016 08:52:Ellen Simental RN) : 1 (10/03/2016 08:52:Ellen Simental RN) Spontaneous Abortions: 0 (10/03/2016 08:52:Ellen Simental RN) Induced Abortions: 0 (10/03/2016 08:52:Ellen Simental RN) Livin (10/03/2016 08:52:Ellen Simental RN) Cesareans: 0 (10/03/2016 08:52:Ellen Simental RN) VBACs: 0 (10/03/2016 08:52:Ellen Simental RN) Ectopic: 0 (10/03/2016 08:52:Ellen Simental RN) Multiple Births: 0 (10/03/2016 08:52:Ellen Simental RN) Baby, Number in Womb: 1 (10/03/2016 08:52:Ellen Simental RN) CARE Primary Property Claims Adjuster: [facility] (10/03/2016 08:52:Ellen Simental RN) Property Claims Adjuster Other: [facility] (10/03/2016 08:52:Ellen Simental RN) Month of 1st Visit: 27 weeks (10/03/2016 08:52:Ellen Simental RN) Adequate Care: No (10/03/2016 08:52:Ellen Simental RN) Height (in): 68 (10/03/2016 12:21:QS system process) Height (in): 68 (10/03/2016 09:56:QS system process) Height (in): 27 (10/03/2016 08:52:QS system process) ALLERGIES Medication Allergy: No (10/03/2016 08:52:Ellen Simental RN) Medication Allergies: No Known Allergies (10/03/2015) (10/03/2016 08:55:QS system process) Latex Allergy: No Latex Allergies (10/03/2016 08:52:Ellen Simental RN) COMMUNICATION Primary Language: Citizen Of [place] (10/03/2016 08:52:Ellen Simental RN) Medical Tx Preferred Language: Citizen Of [place] (10/03/2016 08:52:Mindy Solis RN) Communication Barrier(s): None (10/03/2016 08:52:Ellen Simental RN) DEMOGRAPHICS Address: [address] [place] [address] (10/03/2016 08:55:QS system process) Address: [address] [place] [address] (10/03/2016 08:52:Ellen Simental RN) Zipcode: [address] (10/03/2016 08:55:QS system process) Zipcode: [address] (10/03/2016 08:52:Ellen Simental RN) County: [place] (10/03/2016 08:52:Ellen Simental RN) Home (10/03/2016 08:55:QS system process) Home (10/03/2016 08:52:Ellen Simental RN) SSN: [id number] (10/03/2016 08:55:QS system process) Next of Kin Name: JANET CABRERA (10/03/2016 08:55:QS system process) Next of Kin Name: Janet Cabrera (10/03/2016 08:52:Ellen Simental RN) Next of Kin (10/03/2016 08:55:QS system process) Next of Kin (10/03/2016 08:52:Ellen Simental RN) Next of Kin Relationship: MO (10/03/2016 08:55:QS system process) Next of Kin Relationship: Mother (10/03/2016 08:52:Ellen Simental RN) Date of : 1985 (10/03/2016 08:55:QS system process) Date of : 1985 (10/03/2016 08:52:Ellen Simental RN) Marital Status: Single (10/03/2016 08:55:QS system process) Sex: Female (10/03/2016 08:55:QS system process) Sex: Female (10/03/2016 08:52:Ellen Simental RN) Race: (10/03/2016 08:55:QS system process) Ethnicity: Non- or (10/03/2016 08:55:QS system process) Ethnicity: Non- or (10/03/2016 08:52:Ellen Simental RN) Gnosticist: None (10/03/2016 08:55:QS system process) DRUG AND ALCOHOL USE Alcohol: No (10/03/2016 08:52:Ellen Simental RN) Cigarettes: Never Smoker. [id number] (10/03/2016 08:52:Ellen Simental RN) Marijuana: No (10/03/2016 08:52:Ellen Simental RN) Cocaine: No (10/03/2016 08:52:Ellen Simental RN) Other Illicit Drugs: No (10/03/2016 08:52:Ellen Simental RN) VACCINE HISTORY Influenza Vaccine: No (10/03/2016 08:52:Ellen Simental RN) Pneumococcal Vaccine: No (10/03/2016 08:52:Ellen Simental RN) Tetanus Vaccine: No (10/03/2016 08:52:Ellen Simental RN) Tdap Vaccine: Yes (10/03/2016 08:52:Ellen Simental RN) Tdap Date: June 2016 (10/03/2016 08:52:Ellen Simental RN) Hepatitis B Vaccine: No (10/03/2016 08:52:Ellen Simental RN) Nonprofit Director: [facility] (10/03/2016 08:52:Ellen Simental RN) Feeding Preference: Formula (10/03/2016 08:52:Ellen Simental RN) Benefit of Breast Feed Discussed: Yes (10/03/2016 08:52:Ellen Simental RN) Circumcision: Yes (10/03/2016 08:52:Ellen Simental RN) Classes Attended: No (10/03/2016 08:52:Ellen Simental RN) Tubal Ligation: Yes (10/03/2016 08:52:Ellen Simental RN) Tubal Authorization Signed: Yes (10/03/2016 08:52:Ellen Simental RN) Consent: N/A (10/03/2016 08:52:Ellen Simental RN) Consent Signed: N/A (10/03/2016 08:52:Ellen Simental RN) Pain Management Plans: None (10/03/2016 08:52:Ellen Simental RN) Plans for Labor and Delivery: None (10/03/2016 08:52:Ellen Simental RN) Support Person: Janet (10/03/2016 08:52:Ellen Simental RN) Support Person Relationship: Mother (10/03/2016 08:52:Ellen Simental RN) Cultural/Spritual Practice: No (10/03/2016 08:52:Ellen Simental RN) Spir/Cult Dietary Needs: No (10/03/2016 08:52:Ellen Simental RN) LIVING SITUATION/DISCHARGE PLAN Living Arrangements: House (10/03/2016 08:52:Ellen Simental RN) Adequate Access to:: Electric; Heat; Refrigeration; Plumbing/Running water; Phone; Transportation (10/03/2016 08:52:Ellen Simental RN) WIC Program: No (10/03/2016 08:52:Ellen Simental RN) Discharge Instructional Design Consultant Person: Janet (10/03/2016 08:52:Ellen Simental RN) Person to Help after Discharge: Janet (10/03/2016 08:52:Ellen Simental RN) Currently Using Commun Resources: Yes (10/03/2016 08:52:Ellen Simental RN) Specify Current Resource Used: Medicaid (10/03/2016 08:52:Ellen Simental RN) Outside Agency/Armor Officer: No (10/03/2016 08:52:Ellen Simental RN) Car Seat for Discharge: Yes (10/03/2016 08:52:Ellen Simental RN) Adoption Requested: No (10/03/2016 08:52:Ellen Simental RN) Pt Contact w/ Post : N/A (10/03/2016 08:52:Ellen Simental RN) LABS Blood Type: O Positive (10/03/2016 08:52:Geeta Craig RN) Antibody Screen: negative (10/03/2016 08:52:Geeta Craig RN) Hemoglobin: 11.1 L (10/03/2016 09:39:QS system process) Hematocrit: 33.9 L (10/03/2016 09:39:QS system process) MCV: 79 L (10/03/2016 09:39:QS system process) Group Beta Strep: positive (10/03/2016 08:52:Ellen Simental RN) Gonorrhea: Negative (10/03/2016 08:52:Geeta Craig RN) Chlamydia: Negative (10/03/2016 08:52:Geeta Craig RN) RPR/VDRL: Nonreactive (10/03/2016 08:52:Geeta Craig RN) HIV Results: negative (10/03/2016 08:52:Geeta Craig RN) Hepatitis B: Negative (10/03/2016 08:52:Geeta Craig RN) Rubella: Non-Immune (10/03/2016 08:52:Geeta Craig RN) OB/PREVIOUS HISTORY Previous Procedures: Ultrasound (10/03/2016 08:52:Ellen Simental RN) Current Procedures: Ultrasound; NST (10/03/2016 08:52:Ellen Simental RN) History of Previous : No (10/03/2016 08:52:Ellen Simental RN) History of Gestational Diabetes: No (10/03/2016 08:52:Ellen Simental RN) History of PIH: Yes (10/03/2016 08:52:Ellen Simental RN) History of Incompetent Cervix: No (10/03/2016 08:52:Ellen Simental RN) History of Placenta Previa/Abrup: No (10/03/2016 08:52:Ellen Simental RN) History of Macrosomia: No (10/03/2016 08:52:Ellen Simental RN) History of IUGR: No (10/03/2016 08:52:Ellen Simental RN) History of Hemorrhage: No (10/03/2016 08:52:Ellen Simental RN) History of Loss/Stillborn: No (10/03/2016 08:52:Ellen Simental RN) History of : No (10/03/2016 08:52:Ellen Simental RN) History of D (Rh) Sensitization: No (10/03/2016 08:52:Ellen Simental RN) History Recurrent Loss/Stillborn: No (10/03/2016 08:52:Ellen Simental RN) History Depression/PP Depression: No (10/03/2016 08:52:Ellen Simental RN) History of Uterine Anomaly/LYUDMILA: No (10/03/2016 08:52:Ellen Simental RN) History of Infertility: No (10/03/2016 08:52:Ellen Simental RN) History of ART Treatment: No (10/03/2016 08:52:Ellen Simental RN) History of LYUDMILA: No (10/03/2016 08:52:Ellen Simental RN) Comments Obstetrical History: G1- 2006 37 wks hx of Pre E G2- 2009 39 wks G3- 2010 40 wks G4- 2012 39 wks G5- 2013 39 wks G6- Current (10/03/2016 08:52:Ellen Simental RN) MEDICAL HISTORY Med Hx Diabetes: No (10/03/2016 08:52:Ellen Simental RN) Med Hx Hypertension: No (10/03/2016 08:52:Ellen Simental RN) Med Hx Heart Disease: No (10/03/2016 08:52:Ellne Simental RN) Med Hx Autoimmune Disorder: No (10/03/2016 08:52:Ellen Simental RN) Med Hx Kidney Disease/UTI: No (10/03/2016 08:52:Ellen Simental RN) Med Hx Neurologic/Epilepsy: No (10/03/2016 08:52:Ellen Simental RN) Med Hx Psychiatric Disorders: No (10/03/2016 08:52:Ellen Simental RN) Med Hx Hepatitis/Liver Disease: No (10/03/2016 08:52:Ellen Simental RN) Med Hx Varicosities/Phlebitis: No (10/03/2016 08:52:Ellen Simental RN) Med Hx Thyroid Dysfunction: No (10/03/2016 08:52:Ellen Simental RN) Med Hx Trauma/Violence: No (10/03/2016 08:52:Ellen Simental RN) Med Hx Blood Transfusion: No (10/03/2016 08:52:Ellen Simental RN) Med Hx Pulmonary (Asthma,TB): No (10/03/2016 08:52:Ellen Simental RN) Med Hx Breast: No (10/03/2016 08:52:Ellen Simental RN) Med Hx CRAYON PAINTER Surgery: No (10/03/2016 08:52:Ellen Simental RN) Med Hx Hospitalization/Surgery: No (10/03/2016 08:52:Ellen Simental RN) Med Hx Anesthetic Complications: No (10/03/2016 08:52:Ellen Simental RN) Med Hx Abnormal Pap Smear: No (10/03/2016 08:52:Ellen Simental RN) Other Medical Diseases: No (10/03/2016 08:52:Ellen Simental RN) Med Hx Significant Family Hx: No (10/03/2016 08:52:Ellen Simental RN) INFECTIOUS HISTORY Inf Hx Gonorrhea: No (10/03/2016 08:52:Ellen Simental RN) Inf Hx Chlamydia: No (10/03/2016 08:52:Ellen Simental RN) Inf Hx Syphilis: No (10/03/2016 08:52:Ellen Simental RN) Inf Hx HIV/AIDS: No (10/03/2016 08:52:Ellen Simental RN) Inf Hx Human Papilloma Virus: No (10/03/2016 08:52:Ellen Simental RN) Inf Hx Pt/Partner Genital Herpes: No (10/03/2016 08:52:Ellen Simental RN) Inf Hx Tuberculosis/Exposure: No (10/03/2016 08:52:Ellen Simental RN) Inf Hx Hepatitis B,C: No (10/03/2016 08:52:Ellen Simental RN) Inf Hx Rash or Viral Illness: No (10/03/2016 08:52:Ellen Simental RN) GENETIC HISTORY Gen Hx Age >=35 at SHAHEED: No (10/03/2016 08:52:Ellen Simental RN) Gen Hx Thalassemia: No (10/03/2016 08:52:Ellen Simental RN) Gen Hx Congenital Heart Defect: No (10/03/2016 08:52:Ellen Simental RN) Gen Hx Neural Tube Defect: No (10/03/2016 08:52:Ellen Simental RN) Gen Hx Down's Syndrome: No (10/03/2016 08:52:Ellen Simental RN) Gen Hx Russell-Sachs: No (10/03/2016 08:52:Ellen Simental RN) Gen Hx Delfino: No (10/03/2016 08:52:Ellen Simental RN) Gen Hx Familial Dysautonomia: No (10/03/2016 08:52:Ellen Simental RN) Gen Hx Sickle Cell Disease/Trait: No (10/03/2016 08:52:Ellen Simental RN) Gen Hx Hemophilia/Blood Disorder: No (10/03/2016 08:52:Ellen Simental RN) Gen Hx Muscular Dystrophy: No (10/03/2016 08:52:Ellen Simental RN) Gen Hx Cystic Fibrosis: No (10/03/2016 08:52:Ellen Simental RN) Gen Hx Huntingtons Chorea: No (10/03/2016 08:52:Ellen Simental RN) Gen Hx Mental Retardation/Autism: No (10/03/2016 08:52:Ellen Simental RN) Gen Hx Tested for Fragile X: No (10/03/2016 08:52:Ellen Simental RN) Gen Hx Other Inher/Chromosomal: No (10/03/2016 08:52:Ellen Simental RN) Gen Hx Maternal Metabolic DO: No (10/03/2016 08:52:Ellen Simental RN) Gen Hx Pt Father or FOB Defect: No (10/03/2016 08:52:Ellen Simental RN) Gen Hx Other Genetic History: No (10/03/2016 08:52:Ellen Simental RN) Gen Hx Drugs/Meds since LMP: No (10/03/2016 08:52:Ellen Simental RN)
--- NOTE | 2016-10-03 22:46 | L&D Flow Sheet ---
LD Flowsheet Datetime Report Generated by CPN: 10/03/2016 22:45 Datetime: 10/03/2016:17 Stage of : Recovery (Ellen Simental, RN) Datetime: 10/03/2016 12:07 Stage of : Recovery (Rucsmargarita Simental, RN) NBP Sys/Kenia/Mean (mmHg): 149 (QS system process) : 72 (QS system process) : 103 (QS system process) Pulse: 62 (QS system process) Respirations: 18 (Rucsandra Kamille, RN) Pain Scale: 2 (Rucsandra Kamille, RN) Pain Presence: Intermittent (Rucsandra Kamille, RN) Pain Type: Cramping (Rucsandra Kamille, RN) Pain Location: Abdomen (Rucsandra Kamille, RN) Pain Goal: 3 (Rucsandra Kamille, RN) Pain Relief Measures: Comfort Measures (Rucsandra Kamille, RN) Datetime: 10/03/2016 11:51 Stage of : Recovery (Rucsandra Kamille, RN) NBP Sys/Kenia/Mean (mmHg): 150 (QS system process) : 67 (QS system process) : 96 (QS system process) Pulse: 81 (QS system process) Respirations: 16 (Rucsandra Kamille, RN) Pain Scale: 2 (Rucsandra Kamille, RN) Pain Presence: Intermittent (Rucsandra Kamille, RN) Pain Type: Cramping (Rucsandra Kamille, RN) Pain Location: Abdomen (Rucsandra Kamille, RN) Pain Goal: 3 (Rucsandra Kamille, RN) Pain Relief Measures: Comfort Measures (Rucsandra Kamille, RN) Datetime: 10/03/2016 11:45 Stage of : Recovery (Ellen Simental, RN) Datetime: 10/03/2016 11:40 Stage of : Recovery (Ellen Simental, RN) NBP Sys/Kenia/Mean (mmHg): 148 (QS system process) : 70 (QS system process) : 101 (QS system process) Pulse: 81 (QS system process) Pain Scale: 2 (Ellen Simental RN) Pain Presence: Intermittent (Ellen Simental, RN) Pain Type: Cramping (Ellen Simental RN) Pain Location: Abdomen (Ellen Simental RN) Pain Goal: 3 (Ellen Simental RN) Pain Relief Measures: Comfort Measures (Ellen Simental, RN) Datetime: 10/03/2016 11:36 Stage of : Recovery (Ruaric Simental, RN) NBP Sys/Kenia/Mean (mmHg): 147 (QS system process) : 71 (QS system process) : 101 (QS system process) Pulse: 61 (QS system process) Respirations: 18 (Ellen Simental RN) Pain Scale: 2 (Ellen Simental RN) Pain Presence: Intermittent (Ellen Simental RN) Pain Type: Cramping (Ellen Simental, RN) Pain Location: Abdomen (Ellen Simental, RN) Pain Goal: 3 (Ellen Simental RN) Pain Relief Measures: Comfort Measures (Ellen Simental, RN) Datetime: 10/03/2016 11:21 Stage of : Recovery (Ellen Simental RN) NBP Sys/Kenia/Mean (mmHg): 150 (QS system process) : 80 (QS system process) : 106 (QS system process) Pulse: 57 (QS system process) Pain Scale: 2 (Ellen Simental RN) Pain Presence: Intermittent (Ellen Simental RN) Pain Type: Cramping (Ellen Simental, RN) Pain Location: Abdomen (Ellen Simental, RN) Pain Goal: 3 (Ellen Simental, BHAVYA) Pain Relief Measures: Comfort Measures (Ellen Simental, BHAVYA) Datetime: 10/03/2016 11:06 Stage of : Recovery (Ellen Simental, BHAVYA) NBP Sys/Kenia/Mean (mmHg): 150 (QS system process) : 72 (QS system process) : 104 (QS system process) Pulse: 71 (QS system process) Pain Scale: 2 (Ellen Simental RN) Pain Presence: Intermittent (Ellen Simental RN) Pain Type: Cramping (Ellen Simental, RN) Pain Location: Abdomen (Ellen Simental RN) Pain Goal: 3 (Ellen Simental RN) Pain Relief Measures: Comfort Measures (Ellen Simental RN) Datetime: 10/03/2016 11:02 NBP Sys/Kenia/Mean (mmHg): 189 (QS system process) : 129 (QS system process) : 145 (QS system process) Pulse: 77 (QS system process) Datetime: 10/03/2016 11:00 Stage of : Recovery (Ellen Simental, RN) Temperature (F): 99.2 (Wagnerandra Simental, RN) Temperature (C): 37.3 (QS system process) Datetime: 10/03/2016 10:23 Stage of : Recovery (Ellen Simental, RN) Pain Scale: 2 (Wagnerandra Simental, RN) Pain Presence: Intermittent (Rucsandra Kamille, RN) Pain Type: Cramping (Baciliocsandra Kamille, RN) Pain Location: Abdomen (Baciliocsandra Simental, RN) Pain Goal: 3 (Rucsandra Kamille, RN) Datetime: 10/03/2016 09:23 Temperature (F): 98.7 (Ellen Simental, RN) Temperature (C): 37.1 (QS system process)
--- NOTE | 2016-10-04 04:46 | L&D General Admission ---
General Admit Datetime Report Generated by CPN: 10/04/2016 04:45 INFORMATION Patient Age: 30 (10/03/2016 08:55:QS system process) Patient Age: 30 (10/03/2016 08:52:Ellen Simental RN) EDC: 09/30/2016 00:00 (10/03/2016 08:52:Ellen Simental RN) : 6 (10/03/2016 08:52:Ellen Simental RN) Para: 5 (10/03/2016 08:52:Ellen Simental RN) Term: 4 (10/03/2016 08:52:Ellen Simental RN) : 1 (10/03/2016 08:52:Ellen Simental RN) Spontaneous Abortions: 0 (10/03/2016 08:52:Ellen Simental RN) Induced Abortions: 0 (10/03/2016 08:52:Ellen Simental RN) Livin (10/03/2016 08:52:Ellen Simental RN) Cesareans: 0 (10/03/2016 08:52:Ellen Simental RN) VBACs: 0 (10/03/2016 08:52:Ellen Simental RN) Ectopic: 0 (10/03/2016 08:52:Ellen Simental RN) Multiple Births: 0 (10/03/2016 08:52:Ellen Simental RN) Baby, Number in Womb: 1 (10/03/2016 08:52:Ellen Simental RN) CARE Primary Pmo Lead: [facility] (10/03/2016 08:52:Ellen Simental RN) Pmo Lead Other: [facility] (10/03/2016 08:52:Ellen Simental RN) Month of 1st Visit: 27 weeks (10/03/2016 08:52:Ellen Simental RN) Adequate Care: No (10/03/2016 08:52:Ellen Simental RN) Height (in): 68 (10/03/2016 12:21:QS system process) Height (in): 68 (10/03/2016 09:56:QS system process) Height (in): 27 (10/03/2016 08:52:QS system process) ALLERGIES Medication Allergy: No (10/03/2016 08:52:Ellen Simental RN) Medication Allergies: No Known Allergies (10/03/2015) (10/03/2016 08:55:QS system process) Latex Allergy: No Latex Allergies (10/03/2016 08:52:Ellen Simental RN) COMMUNICATION Primary Language: Ivorian (10/03/2016 08:52:Ellen Simental RN) Medical Tx Preferred Language: Ivorian (10/03/2016 08:52:Mindy Solis RN) Communication Barrier(s): None (10/03/2016 08:52:Ellen Simental RN) DEMOGRAPHICS Address: [address] [place] [address] (10/03/2016 08:55:QS system process) Address: [address] [place] [address] (10/03/2016 08:52:Ellen Simental RN) Zipcode: [address] (10/03/2016 08:55:QS system process) Zipcode: [address] (10/03/2016 08:52:Ellen Simental RN) County: [place] (10/03/2016 08:52:Ellen Simental RN) Home (10/03/2016 08:55:QS system process) Home (10/03/2016 08:52:Ellen Simental RN) SSN: [id number] (10/03/2016 08:55:QS system process) Next of Kin Name: JANET CABRERA (10/03/2016 08:55:QS system process) Next of Kin Name: Janet Cabrera (10/03/2016 08:52:Ellen Simental RN) Next of Kin (10/03/2016 08:55:QS system process) Next of Kin (10/03/2016 08:52:Ellen Simental RN) Next of Kin Relationship: MO (10/03/2016 08:55:QS system process) Next of Kin Relationship: Mother (10/03/2016 08:52:Ellen Simental RN) Date of : 1985 (10/03/2016 08:55:QS system process) Date of : 1985 (10/03/2016 08:52:Ellen Simental RN) Marital Status: Single (10/03/2016 08:55:QS system process) Sex: Female (10/03/2016 08:55:QS system process) Sex: Female (10/03/2016 08:52:Ellen Simental RN) Race: (10/03/2016 08:55:QS system process) Ethnicity: Non- or (10/03/2016 08:55:QS system process) Ethnicity: Non- or (10/03/2016 08:52:Ellen Simental RN) Hoahaoism: None (10/03/2016 08:55:QS system process) DRUG AND ALCOHOL USE Alcohol: No (10/03/2016 08:52:Ellen Simental RN) Cigarettes: Never Smoker. [id number] (10/03/2016 08:52:Ellen Simental RN) Marijuana: No (10/03/2016 08:52:Ellen Simental RN) Cocaine: No (10/03/2016 08:52:Ellen Simental RN) Other Illicit Drugs: No (10/03/2016 08:52:Ellen Simental RN) VACCINE HISTORY Influenza Vaccine: No (10/03/2016 08:52:Ellen Simental RN) Pneumococcal Vaccine: No (10/03/2016 08:52:Ellen Simental RN) Tetanus Vaccine: No (10/03/2016 08:52:Ellen Simental RN) Tdap Vaccine: Yes (10/03/2016 08:52:Ellen Simental RN) Tdap Date: June 2016 (10/03/2016 08:52:Ellen Simental RN) Hepatitis B Vaccine: No (10/03/2016 08:52:Ellen Simental RN) Lopper: [facility] (10/03/2016 08:52:Ellen Simental RN) Feeding Preference: Formula (10/03/2016 08:52:Ellen Simental RN) Benefit of Breast Feed Discussed: Yes (10/03/2016 08:52:Ellen Simental RN) Circumcision: Yes (10/03/2016 08:52:Ellen Simental RN) Classes Attended: No (10/03/2016 08:52:Ellen Simental RN) Tubal Ligation: Yes (10/03/2016 08:52:Ellen Simental RN) Tubal Authorization Signed: Yes (10/03/2016 08:52:Ellen Simental RN) Consent: N/A (10/03/2016 08:52:Ellen Simental RN) Consent Signed: N/A (10/03/2016 08:52:Ellen Simental RN) Pain Management Plans: None (10/03/2016 08:52:Ellen Simental RN) Plans for Labor and Delivery: None (10/03/2016 08:52:Ellen Simental RN) Support Person: Janet (10/03/2016 08:52:Ellen Simental RN) Support Person Relationship: Mother (10/03/2016 08:52:Ellen Simental RN) Cultural/Spritual Practice: No (10/03/2016 08:52:Ellen Simental RN) Spir/Cult Dietary Needs: No (10/03/2016 08:52:Ellen Simental RN) LIVING SITUATION/DISCHARGE PLAN Living Arrangements: House (10/03/2016 08:52:Ellen Simental RN) Adequate Access to:: Electric; Heat; Refrigeration; Plumbing/Running water; Phone; Transportation (10/03/2016 08:52:Ellen Simental RN) WIC Program: No (10/03/2016 08:52:Ellen Simental RN) 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 (10/03/2016 08:52:Ellen Simental RN) Person to Help after Discharge: Janet (10/03/2016 08:52:Ellen Simental RN) Currently Using Commun Resources: Yes (10/03/2016 08:52:Ellen Simental RN) Specify Current Resource Used: Medicaid (10/03/2016 08:52:Ellen Simental RN) Outside Agency/Sales Closer: No (10/03/2016 08:52:Ellen Simental RN) Car Seat for Discharge: Yes (10/03/2016 08:52:Ellen Simental RN) Adoption Requested: No (10/03/2016 08:52:Ellen Simental RN) Pt Contact w/ Post : N/A (10/03/2016 08:52:Ellen Simental RN) LABS Blood Type: O Positive (10/03/2016 08:52:Geeta Craig RN) Antibody Screen: negative (10/03/2016 08:52:Geeta Craig RN) Hemoglobin: 11.1 L (10/03/2016 09:39:QS system process) Hematocrit: 33.9 L (10/03/2016 09:39:QS system process) MCV: 79 L (10/03/2016 09:39:QS system process) Group Beta Strep: positive (10/03/2016 08:52:Ellen Simental RN) Gonorrhea: Negative (10/03/2016 08:52:Geeta Craig RN) Chlamydia: Negative (10/03/2016 08:52:Geeta Craig RN) RPR/VDRL: Nonreactive (10/03/2016 08:52:Geeta Craig RN) HIV Results: negative (10/03/2016 08:52:Geeta Craig RN) Hepatitis B: Negative (10/03/2016 08:52:Geeta Craig RN) Rubella: Non-Immune (10/03/2016 08:52:Geeta Craig RN) OB/PREVIOUS HISTORY Previous Procedures: Ultrasound (10/03/2016 08:52:Ellen Simental RN) Current Procedures: Ultrasound; NST (10/03/2016 08:52:Ellen Simental RN) History of Previous : No (10/03/2016 08:52:Ellen Simental RN) History of Gestational Diabetes: No (10/03/2016 08:52:Ellen Simental RN) History of PIH: Yes (10/03/2016 08:52:Ellen Simental RN) History of Incompetent Cervix: No (10/03/2016 08:52:Ellen Simental RN) History of Placenta Previa/Abrup: No (10/03/2016 08:52:Ellen Simental RN) History of Macrosomia: No (10/03/2016 08:52:Ellen Simental RN) History of IUGR: No (10/03/2016 08:52:Ellen Simental RN) History of Hemorrhage: No (10/03/2016 08:52:Ellen Simental RN) History of Loss/Stillborn: No (10/03/2016 08:52:Ellen Simental RN) History of : No (10/03/2016 08:52:Ellen Simental RN) History of D (Rh) Sensitization: No (10/03/2016 08:52:Ellen Simental RN) History Recurrent Loss/Stillborn: No (10/03/2016 08:52:Ellen Simental RN) History Depression/PP Depression: No (10/03/2016 08:52:Ellen Simental RN) History of Uterine Anomaly/LYUDMILA: No (10/03/2016 08:52:Ellen Simental RN) History of Infertility: No (10/03/2016 08:52:Ellen Simental RN) History of ART Treatment: No (10/03/2016 08:52:Ellen Simental RN) History of LYUDMILA: No (10/03/2016 08:52:Ellen Simental RN) Comments Obstetrical History: G1- 2006 37 wks hx of Pre E G2- 2009 39 wks G3- 2010 40 wks G4- 2012 39 wks G5- 2013 39 wks G6- Current (10/03/2016 08:52:Ellen Simental RN) MEDICAL HISTORY Med Hx Diabetes: No (10/03/2016 08:52:Ellen Simental RN) Med Hx Hypertension: No (10/03/2016 08:52:Ellen Simental RN) Med Hx Heart Disease: No (10/03/2016 08:52:Ellen Simental RN) Med Hx Autoimmune Disorder: No (10/03/2016 08:52:Ellen Simental RN) Med Hx Kidney Disease/UTI: No (10/03/2016 08:52:Ellen Simental RN) Med Hx Neurologic/Epilepsy: No (10/03/2016 08:52:Ellen Simental RN) Med Hx Psychiatric Disorders: No (10/03/2016 08:52:Ellen Simental RN) Med Hx Hepatitis/Liver Disease: No (10/03/2016 08:52:Ellen Simental RN) Med Hx Varicosities/Phlebitis: No (10/03/2016 08:52:Ellen Simental RN) Med Hx Thyroid Dysfunction: No (10/03/2016 08:52:Ellen Simental RN) Med Hx Trauma/Violence: No (10/03/2016 08:52:Ellen Simental RN) Med Hx Blood Transfusion: No (10/03/2016 08:52:Ellen Simental RN) Med Hx Pulmonary (Asthma,TB): No (10/03/2016 08:52:Ellen Simental RN) Med Hx Breast: No (10/03/2016 08:52:Ellen Simental RN) Med Hx SHIPPING HAND Surgery: No (10/03/2016 08:52:Ellen Simental RN) Med Hx Hospitalization/Surgery: No (10/03/2016 08:52:Ellen Simental RN) Med Hx Anesthetic Complications: No (10/03/2016 08:52:Ellen Simental RN) Med Hx Abnormal Pap Smear: No (10/03/2016 08:52:Ellen Simental RN) Other Medical Diseases: No (10/03/2016 08:52:Ellen Simental RN) Med Hx Significant Family Hx: No (10/03/2016 08:52:Ellen Simental RN) INFECTIOUS HISTORY Inf Hx Gonorrhea: No (10/03/2016 08:52:Ellen Simental RN) Inf Hx Chlamydia: No (10/03/2016 08:52:Ellen Simental RN) Inf Hx Syphilis: No (10/03/2016 08:52:Ellen Simental RN) Inf Hx HIV/AIDS: No (10/03/2016 08:52:Ellen Simental RN) Inf Hx Human Papilloma Virus: No (10/03/2016 08:52:Ellen Simental RN) Inf Hx Pt/Partner Genital Herpes: No (10/03/2016 08:52:Ellen Simental RN) Inf Hx Tuberculosis/Exposure: No (10/03/2016 08:52:Ellen Simental RN) Inf Hx Hepatitis B,C: No (10/03/2016 08:52:Ellen Simental RN) Inf Hx Rash or Viral Illness: No (10/03/2016 08:52:Ellen Simental RN) GENETIC HISTORY Gen Hx Age >=35 at SHAHEED: No (10/03/2016 08:52:Ellen Simental RN) Gen Hx Thalassemia: No (10/03/2016 08:52:Ellen Simental RN) Gen Hx Congenital Heart Defect: No (10/03/2016 08:52:Ellen Simental RN) Gen Hx Neural Tube Defect: No (10/03/2016 08:52:Ellen Simental RN) Gen Hx Down's Syndrome: No (10/03/2016 08:52:Ellen Simental RN) Gen Hx Russell-Sachs: No (10/03/2016 08:52:Ellen Simental RN) Gen Hx Delfino: No (10/03/2016 08:52:Ellen Simental RN) Gen Hx Familial Dysautonomia: No (10/03/2016 08:52:Ellen Simental RN) Gen Hx Sickle Cell Disease/Trait: No (10/03/2016 08:52:Ellen Simental RN) Gen Hx Hemophilia/Blood Disorder: No (10/03/2016 08:52:Ellen Simental RN) Gen Hx Muscular Dystrophy: No (10/03/2016 08:52:Ellen Simental RN) Gen Hx Cystic Fibrosis: No (10/03/2016 08:52:Ellen Simental RN) Gen Hx Huntingtons Chorea: No (10/03/2016 08:52:Ellen Simental RN) Gen Hx Mental Retardation/Autism: No (10/03/2016 08:52:Ellen Simental RN) Gen Hx Tested for Fragile X: No (10/03/2016 08:52:Ellen Simental RN) Gen Hx Other Inher/Chromosomal: No (10/03/2016 08:52:Ellen Simental RN) Gen Hx Maternal Metabolic DO: No (10/03/2016 08:52:Ellen Simental RN) Gen Hx Pt Father or FOB Defect: No (10/03/2016 08:52:Ellen Simental RN) Gen Hx Other Genetic History: No (10/03/2016 08:52:Ellen Simental RN) Gen Hx Drugs/Meds since LMP: No (10/03/2016 08:52:Ellen Simental RN)
--- NOTE | 2016-10-04 04:46 | L&D Admission Assessment ---
LD ADM ASMT Datetime Report Generated by CPN: 10/04/2016 04:45 WEIGHT Weight (lb): 200 (10/03/2016 12:21:QS system process) Weight (lb): 200 (10/03/2016 09:56:QS system process) Weight (kg): 90.9 (10/03/2016 12:21:QS system process) Weight (kg): 90.9 (10/03/2016 09:56:QS system process) BMI: 30.4 (10/03/2016 12:21:QS system process) BMI: 192.9 (10/03/2016 09:56:QS system process) ONSET OF LABOR Onset of Labor: 10/03/2016 07:30 (10/03/2016 08:52:Ellen Simental RN) PAIN Pain Scale: 2 (10/03/2016 12:07:Ellen Simental RN) Pain Scale: 2 (10/03/2016 11:51:Ellen Simental RN) Pain Scale: 2 (10/03/2016 11:40:Ellen Simental RN) Pain Scale: 2 (10/03/2016 11:36:Ellen Simental RN) Pain Scale: 2 (10/03/2016 11:21:Ellen Simental RN) Pain Scale: 2 (10/03/2016 11:06:Ellen Simental RN) Pain Scale: 2 (10/03/2016 10:23:Ellen Simental RN) Pain Scale: 2 (10/03/2016 10:08:Ellen Simental RN) Pain Scale: 2 (10/03/2016 10:00:Ellen Simnetal RN) Pain Scale: 2 (10/03/2016 09:53:Ellen Simental RN) Pain Scale: 2 (10/03/2016 09:39:Ellen Simental RN) Pain Scale: 2 (10/03/2016 09:23:Ellen Simental RN) Pain Scale: 2 (10/03/2016 09:08:Ellen Simental RN) Pain Scale: 2 (10/03/2016 08:53:Ellen Simental RN) Pain Presence: Intermittent (10/03/2016 12:07:Ellen Simental RN) Pain Presence: Intermittent (10/03/2016 11:51:Ellen Simental RN) Pain Presence: Intermittent (10/03/2016 11:40:Ellen Simental RN) Pain Presence: Intermittent (10/03/2016 11:36:Ellen Simental RN) Pain Presence: Intermittent (10/03/2016 11:21:Ellen Simental RN) Pain Presence: Intermittent (10/03/2016 11:06:Ellen Simental RN) Pain Presence: Intermittent (10/03/2016 10:23:Ellen Simental RN) Pain Presence: Intermittent (10/03/2016 10:08:Ellen Simental RN) Pain Presence: Intermittent (10/03/2016 10:00:Ellen Simental RN) Pain Presence: Intermittent (10/03/2016 09:53:Ellen Simental RN) Pain Presence: Intermittent (10/03/2016 09:39:Ellen Simental RN) Pain Presence: Intermittent (10/03/2016 09:23:Ellen Simental RN) Pain Presence: Intermittent (10/03/2016 09:08:Ellen Simental RN) Pain Presence: Intermittent (10/03/2016 08:53:Ellen Simental RN) Pain Type: Cramping (10/03/2016 12:07:Ellen Simental RN) Pain Type: Cramping (10/03/2016 11:51:Ellen Simental RN) Pain Type: Cramping (10/03/2016 11:40:Ellen Simental RN) Pain Type: Cramping (10/03/2016 11:36:Ellen Simental RN) Pain Type: Cramping (10/03/2016 11:21:Ellen Simental RN) Pain Type: Cramping (10/03/2016 11:06:Ellen Simental RN) Pain Type: Cramping (10/03/2016 10:23:Ellen Simental RN) Pain Type: Cramping (10/03/2016 10:08:Ellen Simental RN) Pain Type: Cramping (10/03/2016 10:00:Ellen Simental RN) Pain Type: Cramping (10/03/2016 09:53:Ellen Simental RN) Pain Type: Cramping (10/03/2016 09:39:Ellen Simental RN) Pain Type: Cramping (10/03/2016 09:23:Ellen Simental RN) Pain Type: Cramping (10/03/2016 09:08:Ellen Simental RN) Pain Type: Cramping (10/03/2016 08:53:Ellen Simental RN) Pain Location: Abdomen (10/03/2016 12:07:Ellen Simental RN) Pain Location: Abdomen (10/03/2016 11:51:Ellen Simental RN) Pain Location: Abdomen (10/03/2016 11:40:Ellen Simental RN) Pain Location: Abdomen (10/03/2016 11:36:Ellen Simental RN) Pain Location: Abdomen (10/03/2016 11:21:Ellen Simental RN) Pain Location: Abdomen (10/03/2016 11:06:Ellen Simental RN) Pain Location: Abdomen (10/03/2016 10:23:Ellen Simental RN) Pain Location: Abdomen (10/03/2016 10:08:Ellen Simental RN) Pain Location: Abdomen (10/03/2016 10:00:Ellen Simental RN) Pain Location: Abdomen (10/03/2016 09:53:Ellen Simental RN) Pain Location: Abdomen (10/03/2016 09:39:Ellen Simental RN) Pain Location: Abdomen (10/03/2016 09:23:Ellen Simental RN) Pain Location: Abdomen (10/03/2016 09:08:Ellen Simental RN) Pain Location: Abdomen (10/03/2016 08:53:Ellen Simental RN) Pain Goal: 3 (10/03/2016 12:07:Ellen Simental RN) Pain Goal: 3 (10/03/2016 11:51:Ellen Simental RN) Pain Goal: 3 (10/03/2016 11:40:Ellen Simental RN) Pain Goal: 3 (10/03/2016 11:36:Ellen Simental RN) Pain Goal: 3 (10/03/2016 11:21:Ellen Simental RN) Pain Goal: 3 (10/03/2016 11:06:Ellen Simental RN) Pain Goal: 3 (10/03/2016 10:23:Ellen Simental RN) Pain Goal: 3 (10/03/2016 10:08:Ellen Simental RN) Pain Goal: 3 (10/03/2016 10:00:Ellen Simental RN) Pain Goal: 3 (10/03/2016 09:53:Ellen Simental RN) Pain Goal: 3 (10/03/2016 09:39:Ellen Simental RN) Pain Goal: 3 (10/03/2016 09:23:Ellen Simental RN) Pain Goal: 3 (10/03/2016 09:08:Ellen Simental RN) Pain Goal: 3 (10/03/2016 08:53:Ellen Simental RN) VAGINAL EXAM Dilatation (cm): 10.0 (10/03/2016 08:46:Ellen Simental RN) Dilatation (cm): 9.5 (10/03/2016 08:44:Ellen Simental RN) Effacement (%): 100 (10/03/2016 08:46:Ellen Simental RN) Effacement (%): 100 (10/03/2016 08:44:Ellen Simental RN) Station: 3 (10/03/2016 08:46:Ellen Simental RN) Station: 1 (10/03/2016 08:44:Ellen Simental RN) Membranes Rupture D/ (10/03/2016 08:52:Ellen Simental RN) ROM Method: Spontaneous (10/03/2016 08:52:Ellen Simental RN) Amniotic Fluid Color: Clear (10/03/2016 08:52:Ellen Simental RN) Amniotic Fluid Amount: Moderate (10/03/2016 08:52:Ellen Simental RN)
--- NOTE | 2016-10-04 04:46 | L&D Current Admission ---
Current Admit Datetime Report Generated by CPN: 10/04/2016 04:45 ADMISSION INFORMATION Person(s) Allowed during Admit: family (10/03/2016 08:48:Ellen Simental RN) Current Admit Date/Time: 10/03/2016 08:43 (10/03/2016 08:48:Ellen Simental RN) Reason for Admission: Onset of Labor (10/03/2016 08:48:Ellen Simental RN) Chief Complaint: Contractions (10/03/2016 08:48:Ellen Simental RN) EGA per Dates: 40.3 (10/03/2016 08:52:QS system process) Method of Arrival: Wheelchair (10/03/2016 08:48:Ellen Simental RN) Admitted From: Home (10/03/2016 08:48:Ellen Simental RN) Reason for Induction: Not Applicable (10/03/2016 08:48:Ellen Simental RN) Records Available: Yes (10/03/2016 08:48:Ellen Simental RN) General Admission Information: Reviewed (10/03/2016 08:48:Ellen Simental RN) General Admission Reviewed By: Lydia Simental RN (10/03/2016 08:48:Ellen Simental RN) BELONGINGS/ADVANCED DIRECTIVES Other Belongings: see valuables consent form (10/03/2016 08:48:Ellen Simental RN) Disposition of Belongings: Kept with Patient (10/03/2016 08:48:Ellen Simental RN) Advance Direct for Healthcare: No, and Wants No Information (10/03/2016 08:48:Ellen Simental RN) Durable Power of Train Operations Supervisor: No (10/03/2016 08:48:Ellen Simental RN) Living Will: No (10/03/2016 08:48:Ellen Simental RN) Organ Donor: Yes (10/03/2016 08:48:Ellen Simental RN) Pt Rights Information Given: Yes (10/03/2016 08:48:Ellen Simental RN) Pt Understands Pt Rights: Yes (10/03/2016 08:48:Ellen Simental RN) LEARNING ASSESSMENT Knowledge Level: Understands L_D Process; Understands Care Activities; Understands Diagnosis (10/03/2016 08:48:Ellen Simental RN) Barriers to Learning: None (10/03/2016 08:48:Ellen Simental RN) Learning Readiness: Motivated (10/03/2016 08:48:Ellen Simental RN) Learns Best By: 1 to 1 Instruction; Reading; Videos; Group Discussion; Demonstration (10/03/2016 08:48:Ellen Simental RN) Learning Needs: Labor and Delivery Process; Pain Management; Symptoms to Report; Treatment Plan; Medication; Diagnosis; Nutrition; Equipment; Care; Community Resources (10/03/2016 08:48:Ellen Simental RN) DOMESTIC VIOLANCE SCREENING Dom Viol Threatened/Hurt: No (10/03/2016 08:48:Ellen Simental RN) Hx of Abuse/Neglect past 2yrs: No (10/03/2016 08:48:Ellen Simental RN) Feel Unsafe Going Home: No (10/03/2016 08:48:Ellen Simental RN) Addt'l Observ Indicating Abuse: No (10/03/2016 08:48:Ellen Simental RN) Reason Unable to Complete Screen: No Opportunity to Talk Privately (10/03/2016 08:48:Ellen Simental RN) Considered Personal Harm/Suicide: No (10/03/2016 08:48:Ellen Simental RN) NUTRITIONAL/FUNCTIONAL SCREENING Problem with Appetite >5 Days: No (10/03/2016 08:48:Ellen Simental RN) Chew/Swallow Difficulties: No (10/03/2016 08:48:Ellen Simental RN) Inappropriate Wt Gain/Loss: No (10/03/2016 08:48:Ellen Simental RN) Presence Skin Breakdown/Ulcer: No (10/03/2016 08:48:Ellen Simental RN) Special Diet: No (10/03/2016 08:48:Ellen Simental RN) Pt Requests Hat Blocking Machine Operator Visit: No (10/03/2016 08:48:Ellen Simental RN) Hx of Any of the Following?: N/A (10/03/2016 08:48:Ellen Simental RN) New Diagnosis of: N/A (10/03/2016 08:48:Ellen Simental RN) Requires Assist w/Ambulation: No (10/03/2016 08:48:Ellen Simental RN) Uses Assist Device to Ambulate: No (10/03/2016 08:48:Ellen Simental RN) Pt Requires Help w/ADL's: No (10/03/2016 08:48:Ellen Simental RN)
--- NOTE | 2016-10-04 04:46 | L&D Discharge Summary ---
OB Discharge Summary Datetime Report Generated by CPN: 10/04/2016 04:45 DISCHARGE DIAGNOSIS Gestation: 40.3 Number of Babies in Womb: 1 Parity: 5
[2016-10-04] MEDS: IBUPROFEN 800 MG TABLET PO SCH ×3 (05:33→22:44)
[2016-10-04 07:21] LABS: HEMATOCRIT 31.8 % (36.0-47.0); HEMOGLOBIN 10.5 g/dL (12.0-15.5); HGB HCT DIFFERENCE -0.3; MEAN CORPUSCULAR HEMOGLOBIN 25.8 pg (27.0-33.4); MEAN CORPUSCULAR HGB CONC 32.9 g/dL (32.0-36.0); MEAN CORPUSCULAR VOLUME 78 fl (80-97); RED BLOOD COUNT 4.05 10^6/uL (3.72-5.28); RED CELL DISTRIBUTION WIDTH 16.2 % (11.5-14.0); WHITE BLOOD COUNT 7.1 10^3/uL (4.0-10.5)
[2016-10-04] MEDS: SENNOSIDES/DOCUSATE 8.6-50 MG 1 EACH TABLET PO SCH (09:56)
[2016-10-04] MEDS: FERROUS SULFATE 325 MG TABLET PO SCH ×2 (09:56→17:40)
[2016-10-04] MEDS: PRENATAL VITAMIN W-O CA NO5/FE FUMARATE/FA CAPSULE PO SCH (09:56)
[2016-10-04] MEDS: DOCUSATE SODIUM 100 MG CAPSULE PO SCH ×2 (09:57→17:40)
--- NOTE | 2016-10-04 10:46 | L&D General Admission ---
General Admit Datetime Report Generated by CPN: 10/04/2016 10:45 INFORMATION Patient Age: 30 (10/03/2016 08:55:QS system process) Patient Age: 30 (10/03/2016 08:52:Ellen Simental RN) EDC: 09/30/2016 00:00 (10/03/2016 08:52:Ellen Simental RN) : 6 (10/03/2016 08:52:Ellen Simental RN) Para: 5 (10/03/2016 08:52:Ellen Simental RN) Term: 4 (10/03/2016 08:52:Ellen Simental RN) : 1 (10/03/2016 08:52:Ellen Simental RN) Spontaneous Abortions: 0 (10/03/2016 08:52:Ellen Simental RN) Induced Abortions: 0 (10/03/2016 08:52:Ellen Simental RN) Livin (10/03/2016 08:52:Ellen Simental RN) Cesareans: 0 (10/03/2016 08:52:Ellen Simental RN) VBACs: 0 (10/03/2016 08:52:Ellen Simental RN) Ectopic: 0 (10/03/2016 08:52:Ellen Simental RN) Multiple Births: 0 (10/03/2016 08:52:Ellen Simental RN) Baby, Number in Womb: 1 (10/03/2016 08:52:Ellen Simental RN) CARE Primary Sheet Roller Operator: [facility] (10/03/2016 08:52:Ellen Simental RN) Sheet Roller Operator Other: [facility] (10/03/2016 08:52:Ellen Simental RN) Month of 1st Visit: 27 weeks (10/03/2016 08:52:Ellen Simental RN) Adequate Care: No (10/03/2016 08:52:Ellen Simental RN) Height (in): 68 (10/04/2016 09:03:QS system process) Height (in): 68 (10/03/2016 12:21:QS system process) Height (in): 68 (10/03/2016 09:56:QS system process) Height (in): 27 (10/03/2016 08:52:QS system process) ALLERGIES Medication Allergy: No (10/03/2016 08:52:Ellen Simental RN) Medication Allergies: No Known Allergies (10/03/2015) (10/03/2016 08:55:QS system process) Latex Allergy: No Latex Allergies (10/03/2016 08:52:Ellen Simental RN) COMMUNICATION Primary Language: Luxembourgish (10/03/2016 08:52:Ellen Simental RN) Medical Tx Preferred Language: Luxembourgish (10/03/2016 08:52:Mindy Solis RN) Communication Barrier(s): None (10/03/2016 08:52:Ellen Simental RN) DEMOGRAPHICS Address: [address] [place] [id number] (10/03/2016 08:55:QS system process) Address: [address] [place] [address] (10/03/2016 08:52:Ellen Simental RN) Zipcode: [address] (10/03/2016 08:55:QS system process) Zipcode: [address] (10/03/2016 08:52:Ellen Simental RN) County: [place] (10/03/2016 08:52:Ellen Simental RN) Home (10/03/2016 08:55:QS system process) Home (10/03/2016 08:52:Ellen Simental RN) SSN: [id number] (10/03/2016 08:55:QS system process) Next of Kin Name: JANET SANTACRUZ (10/03/2016 08:55:QS system process) Next of Kin Name: Janet Rick (10/03/2016 08:52:Ellen Simental RN) Next of Kin (10/03/2016 08:55:QS system process) Next of Kin (10/03/2016 08:52:Ellen Simental RN) Next of Kin Relationship: MO (10/03/2016 08:55:QS system process) Next of Kin Relationship: Mother (10/03/2016 08:52:Ellen Simental RN) Date of : 1985 (10/03/2016 08:55:QS system process) Date of : 1985 (10/03/2016 08:52:Ellen Simental RN) Marital Status: Single (10/03/2016 08:55:QS system process) Sex: Female (10/03/2016 08:55:QS system process) Sex: Female (10/03/2016 08:52:Ellen Simental RN) Race: (10/03/2016 08:55:QS system process) Ethnicity: Non- or (10/03/2016 08:55:MANUEL system process) Ethnicity: Non- or (10/03/2016 08:52:Ellen Simental RN) Samaritan: None (10/03/2016 08:55:QS system process) DRUG AND ALCOHOL USE Alcohol: No (10/03/2016 08:52:Ellen Simental RN) Cigarettes: Never Smoker. [id number] (10/03/2016 08:52:Ellen Simental RN) Marijuana: No (10/03/2016 08:52:Ellen Simental RN) Cocaine: No (10/03/2016 08:52:Ellen Simental RN) Other Illicit Drugs: No (10/03/2016 08:52:Ellen Simental RN) VACCINE HISTORY Influenza Vaccine: No (10/03/2016 08:52:Ellen Simental RN) Pneumococcal Vaccine: No (10/03/2016 08:52:Ellen Simental RN) Tetanus Vaccine: No (10/03/2016 08:52:Ellen Simental RN) Tdap Vaccine: Yes (10/03/2016 08:52:Ellen Simental RN) Tdap Date: June 2016 (10/03/2016 08:52:Ellen Simental RN) Hepatitis B Vaccine: No (10/03/2016 08:52:Ellen Simental RN) Application Support Analyst: [facility] (10/03/2016 08:52:Ellen Simental RN) Feeding Preference: Formula (10/03/2016 08:52:Ellen Simental RN) Benefit of Breast Feed Discussed: Yes (10/03/2016 08:52:Ellen Simental RN) Circumcision: Yes (10/03/2016 08:52:Ellen Simental RN) Classes Attended: No (10/03/2016 08:52:Ellen Simental RN) Tubal Ligation: Yes (10/03/2016 08:52:Ellen Simental RN) Tubal Authorization Signed: Yes (10/03/2016 08:52:Ellen Simental RN) Consent: N/A (10/03/2016 08:52:Ellen Simental RN) Consent Signed: N/A (10/03/2016 08:52:Ellen Simental RN) Pain Management Plans: None (10/03/2016 08:52:Ellen Simental RN) Plans for Labor and Delivery: None (10/03/2016 08:52:Ellen Simental RN) Support Person: Janet (10/03/2016 08:52:Ellen Simental RN) Support Person Relationship: Mother (10/03/2016 08:52:Ellen Simental RN) Cultural/Spritual Practice: No (10/03/2016 08:52:Ellen Simental RN) Spir/Cult Dietary Needs: No (10/03/2016 08:52:Ellen Simental RN) LIVING SITUATION/DISCHARGE PLAN Living Arrangements: House (10/03/2016 08:52:Ellen Simental RN) Adequate Access to:: Electric; Heat; Refrigeration; Plumbing/Running water; Phone; Transportation (10/03/2016 08:52:Ellen Simental RN) WIC Program: No (10/03/2016 08:52:Ellen Simental RN) Discharge Real Estate Administrator Person: Janet (10/03/2016 08:52:Ellen Simental RN) Person to Help after Discharge: Janet (10/03/2016 08:52:Ellen Simental RN) Currently Using Commun Resources: Yes (10/03/2016 08:52:Ellen Simental RN) Specify Current Resource Used: Medicaid (10/03/2016 08:52:Ellen Simental RN) Outside Agency/Property Manager: No (10/03/2016 08:52:Ellen Simental RN) Car Seat for Discharge: Yes (10/03/2016 08:52:Ellen Simental RN) Adoption Requested: No (10/03/2016 08:52:Ellen Simental RN) Pt Contact w/infant Post : N/A (10/03/2016 08:52:Ellen Simental RN) LABS Blood Type: O Positive (10/03/2016 08:52:Geeta Craig RN) Antibody Screen: negative (10/03/2016 08:52:Geeta Craig RN) Hemoglobin: 10.5 L (10/04/2016 06:58:QS system process) Hemoglobin: 11.1 L (10/03/2016 09:39:QS system process) Hematocrit: 31.8 L (10/04/2016 06:58:QS system process) Hematocrit: 33.9 L (10/03/2016 09:39:QS system process) MCV: 78 L (10/04/2016 06:58:QS system process) MCV: 79 L (10/03/2016 09:39:QS system process) Group Beta Strep: positive (10/03/2016 08:52:Ellen Simental RN) Gonorrhea: Negative (10/03/2016 08:52:Geeta Craig RN) Chlamydia: Negative (10/03/2016 08:52:Geeta Craig RN) RPR/VDRL: Nonreactive (10/03/2016 08:52:Geeta Craig RN) HIV Results: negative (10/03/2016 08:52:Geeta Craig RN) Hepatitis B: Negative (10/03/2016 08:52:Geeta Cragi RN) Rubella: Non-Immune (10/03/2016 08:52:Geeta Craig RN) OB/PREVIOUS HISTORY Previous Procedures: Ultrasound (10/03/2016 08:52:Ellen Simental RN) Current Procedures: Ultrasound; NST (10/03/2016 08:52:Ellen Simental RN) History of Previous : No (10/03/2016 08:52:Ellen Simental RN) History of Gestational Diabetes: No (10/03/2016 08:52:Ellen Simental RN) History of PIH: Yes (10/03/2016 08:52:Ellen Simental RN) History of Incompetent Cervix: No (10/03/2016 08:52:Ellen Simental RN) History of Placenta Previa/Abrup: No (10/03/2016 08:52:Ellen Simental RN) History of Macrosomia: No (10/03/2016 08:52:Ellen Simental RN) History of IUGR: No (10/03/2016 08:52:Ellen Simental RN) History of Hemorrhage: No (10/03/2016 08:52:Ellen Simental RN) History of Loss/Stillborn: No (10/03/2016 08:52:Ellen Simental RN) History of : No (10/03/2016 08:52:Ellen Simental RN) History of D (Rh) Sensitization: No (10/03/2016 08:52:Ellen Simental RN) History Recurrent Loss/Stillborn: No (10/03/2016 08:52:Ellen Simental RN) History Depression/PP Depression: No (10/03/2016 08:52:Ellen Simental RN) History of Uterine Anomaly/LYUDMILA: No (10/03/2016 08:52:Ellen Simental RN) History of Infertility: No (10/03/2016 08:52:Ellen Simental RN) History of ART Treatment: No (10/03/2016 08:52:Ellen Simental RN) History of LYUDMILA: No (10/03/2016 08:52:Ellen Simental RN) Comments Obstetrical History: G1- 2006 37 wks hx of Pre E G2- 2009 39 wks G3- 2010 40 wks G4- 2012 39 wks G5- 2013 39 wks G6- Current (10/03/2016 08:52:Ellen Simental RN) MEDICAL HISTORY Med Hx Diabetes: No (10/03/2016 08:52:Ellen Simental RN) Med Hx Hypertension: No (10/03/2016 08:52:Ellen Simental RN) Med Hx Heart Disease: No (10/03/2016 08:52:Ellen Simental RN) Med Hx Autoimmune Disorder: No (10/03/2016 08:52:Ellen Simental RN) Med Hx Kidney Disease/UTI: No (10/03/2016 08:52:Ellen Simental RN) Med Hx Neurologic/Epilepsy: No (10/03/2016 08:52:Ellen Simental RN) Med Hx Psychiatric Disorders: No (10/03/2016 08:52:Ellen Simental RN) Med Hx Hepatitis/Liver Disease: No (10/03/2016 08:52:Ellen Simental RN) Med Hx Varicosities/Phlebitis: No (10/03/2016 08:52:Ellen Simental RN) Med Hx Thyroid Dysfunction: No (10/03/2016 08:52:Ellen Simental RN) Med Hx Trauma/Violence: No (10/03/2016 08:52:Ellen Simental RN) Med Hx Blood Transfusion: No (10/03/2016 08:52:Ellen Simental RN) Med Hx Pulmonary (Asthma,TB): No (10/03/2016 08:52:Ellen Simental RN) Med Hx Breast: No (10/03/2016 08:52:Ellen Simental RN) Med Hx COUNTY NURSE Surgery: No (10/03/2016 08:52:Ellen Simental RN) Med Hx Hospitalization/Surgery: No (10/03/2016 08:52:Ellen Simental RN) Med Hx Anesthetic Complications: No (10/03/2016 08:52:Ellen Simental RN) Med Hx Abnormal Pap Smear: No (10/03/2016 08:52:Ellen Simental RN) Other Medical Diseases: No (10/03/2016 08:52:Ellen Simental RN) Med Hx Significant Family Hx: No (10/03/2016 08:52:Ellen Simental RN) INFECTIOUS HISTORY Inf Hx Gonorrhea: No (10/03/2016 08:52:Ellen Simental RN) Inf Hx Chlamydia: No (10/03/2016 08:52:Ellen Simental RN) Inf Hx Syphilis: No (10/03/2016 08:52:Ellen Simental RN) Inf Hx HIV/AIDS: No (10/03/2016 08:52:Ellen Simental RN) Inf Hx Human Papilloma Virus: No (10/03/2016 08:52:Ellen Simental RN) Inf Hx Pt/Partner Genital Herpes: No (10/03/2016 08:52:Ellen Simental RN) Inf Hx Tuberculosis/Exposure: No (10/03/2016 08:52:Ellen Simental RN) Inf Hx Hepatitis B,C: No (10/03/2016 08:52:Ellen Simental RN) Inf Hx Rash or Viral Illness: No (10/03/2016 08:52:Ellen Simental RN) GENETIC HISTORY Gen Hx Age >=35 at SHAHEED: No (10/03/2016 08:52:Ellen Simental RN) Gen Hx Thalassemia: No (10/03/2016 08:52:Ellen Simental RN) Gen Hx Congenital Heart Defect: No (10/03/2016 08:52:Ellen Smiental RN) Gen Hx Neural Tube Defect: No (10/03/2016 08:52:Ellen Simental RN) Gen Hx Down's Syndrome: No (10/03/2016 08:52:Ellen Simental RN) Gen Hx Russell-Sachs: No (10/03/2016 08:52:Ellen Simental RN) Gen Hx Delfino: No (10/03/2016 08:52:Ellen Simental RN) Gen Hx Familial Dysautonomia: No (10/03/2016 08:52:Ellen Simental RN) Gen Hx Sickle Cell Disease/Trait: No (10/03/2016 08:52:Ellen Simental RN) Gen Hx Hemophilia/Blood Disorder: No (10/03/2016 08:52:Ellen Simental RN) Gen Hx Muscular Dystrophy: No (10/03/2016 08:52:Ellen Simental RN) Gen Hx Cystic Fibrosis: No (10/03/2016 08:52:Ellen Simental RN) Gen Hx Huntingtons Chorea: No (10/03/2016 08:52:Ellen Simental RN) Gen Hx Mental Retardation/Autism: No (10/03/2016 08:52:Ellen Simental RN) Gen Hx Tested for Fragile X: No (10/03/2016 08:52:Ellen Simental RN) Gen Hx Other Inher/Chromosomal: No (10/03/2016 08:52:Ellen Simental RN) Gen Hx Maternal Metabolic DO: No (10/03/2016 08:52:Ellen Simental RN) Gen Hx Pt Father or FOB Defect: No (10/03/2016 08:52:Ellen Simental RN) Gen Hx Other Genetic History: No (10/03/2016 08:52:Ellen Simental RN) Gen Hx Drugs/Meds since LMP: No (10/03/2016 08:52:Ellen Simental RN)
--- NOTE | 2016-10-04 10:46 | L&D Discharge Summary ---
OB Discharge Summary Datetime Report Generated by CPN: 10/04/2016 10:45 DISCHARGE DIAGNOSIS Gestation: 40.3 Number of Babies in Womb: 1 Parity: 5
--- NOTE | 2016-10-04 10:46 | L&D Admission Assessment ---
LD ADM ASMT Datetime Report Generated by CPN: 10/04/2016 10:45 WEIGHT Weight (lb): 200 (10/04/2016 09:03:QS system process) Weight (lb): 200 (10/03/2016 12:21:QS system process) Weight (lb): 200 (10/03/2016 09:56:QS system process) Weight (kg): 90.9 (10/04/2016 09:03:QS system process) Weight (kg): 90.9 (10/03/2016 12:21:QS system process) Weight (kg): 90.9 (10/03/2016 09:56:QS system process) BMI: 30.4 (10/04/2016 09:03:QS system process) BMI: 30.4 (10/03/2016 12:21:QS system process) BMI: 192.9 (10/03/2016 09:56:QS system process) ONSET OF LABOR Onset of Labor: 10/03/2016 07:30 (10/03/2016 08:52:Ellen Simental RN) PAIN Pain Scale: 2 (10/03/2016 12:07:Ellen Simental RN) Pain Scale: 2 (10/03/2016 11:51:Ellen Simental RN) Pain Scale: 2 (10/03/2016 11:40:Ellen Simental RN) Pain Scale: 2 (10/03/2016 11:36:Ellen Simental RN) Pain Scale: 2 (10/03/2016 11:21:Ellen Simental RN) Pain Scale: 2 (10/03/2016 11:06:Ellen Simental RN) Pain Scale: 2 (10/03/2016 10:23:Ellen Simental RN) Pain Scale: 2 (10/03/2016 10:08:Ellen Simental RN) Pain Scale: 2 (10/03/2016 10:00:Ellen Simental RN) Pain Scale: 2 (10/03/2016 09:53:Ellen Simental RN) Pain Scale: 2 (10/03/2016 09:39:Ellen Simental RN) Pain Scale: 2 (10/03/2016 09:23:Ellen Simental RN) Pain Scale: 2 (10/03/2016 09:08:Ellen Simental RN) Pain Scale: 2 (10/03/2016 08:53:Ellen Simental RN) Pain Presence: Intermittent (10/03/2016 12:07:Ellen Simental RN) Pain Presence: Intermittent (10/03/2016 11:51:Ellen Simental RN) Pain Presence: Intermittent (10/03/2016 11:40:Ellen Simental RN) Pain Presence: Intermittent (10/03/2016 11:36:Ellen Simental RN) Pain Presence: Intermittent (10/03/2016 11:21:Ellen Simental RN) Pain Presence: Intermittent (10/03/2016 11:06:Ellen Simental RN) Pain Presence: Intermittent (10/03/2016 10:23:Ellen Simental RN) Pain Presence: Intermittent (10/03/2016 10:08:Ellen Simental RN) Pain Presence: Intermittent (10/03/2016 10:00:Ellen Simental RN) Pain Presence: Intermittent (10/03/2016 09:53:Ellen Simental RN) Pain Presence: Intermittent (10/03/2016 09:39:Ellen Simental RN) Pain Presence: Intermittent (10/03/2016 09:23:Ellen Simental RN) Pain Presence: Intermittent (10/03/2016 09:08:Ellen Simental RN) Pain Presence: Intermittent (10/03/2016 08:53:Ellen Simental RN) Pain Type: Cramping (10/03/2016 12:07:Ellen Simental RN) Pain Type: Cramping (10/03/2016 11:51:Ellen Simental RN) Pain Type: Cramping (10/03/2016 11:40:Ellen Simental RN) Pain Type: Cramping (10/03/2016 11:36:Ellen Simental RN) Pain Type: Cramping (10/03/2016 11:21:Ellen Simental RN) Pain Type: Cramping (10/03/2016 11:06:Ellen Simental RN) Pain Type: Cramping (10/03/2016 10:23:Ellen Simental RN) Pain Type: Cramping (10/03/2016 10:08:Ellen Simental RN) Pain Type: Cramping (10/03/2016 10:00:Ellen Simental RN) Pain Type: Cramping (10/03/2016 09:53:Ellen Simental RN) Pain Type: Cramping (10/03/2016 09:39:Ellen Simental RN) Pain Type: Cramping (10/03/2016 09:23:Ellen Simental RN) Pain Type: Cramping (10/03/2016 09:08:Ellen Simental RN) Pain Type: Cramping (10/03/2016 08:53:Ellen Simental RN) Pain Location: Abdomen (10/03/2016 12:07:Ellen Simental RN) Pain Location: Abdomen (10/03/2016 11:51:Ellen Simental RN) Pain Location: Abdomen (10/03/2016 11:40:Ellen Simental RN) Pain Location: Abdomen (10/03/2016 11:36:Ellen Simental RN) Pain Location: Abdomen (10/03/2016 11:21:Ellen Simental RN) Pain Location: Abdomen (10/03/2016 11:06:Ellen Simental RN) Pain Location: Abdomen (10/03/2016 10:23:Ellen Simental RN) Pain Location: Abdomen (10/03/2016 10:08:Ellen Simental RN) Pain Location: Abdomen (10/03/2016 10:00:Ellen Simental RN) Pain Location: Abdomen (10/03/2016 09:53:Ellen Simental RN) Pain Location: Abdomen (10/03/2016 09:39:Ellen Simental RN) Pain Location: Abdomen (10/03/2016 09:23:Ellen Simental RN) Pain Location: Abdomen (10/03/2016 09:08:Ellen Simental RN) Pain Location: Abdomen (10/03/2016 08:53:Ellen Simental RN) Pain Goal: 3 (10/03/2016 12:07:Ellen Simental RN) Pain Goal: 3 (10/03/2016 11:51:Ellen Simental RN) Pain Goal: 3 (10/03/2016 11:40:Ellen Simental RN) Pain Goal: 3 (10/03/2016 11:36:Ellen Simental RN) Pain Goal: 3 (10/03/2016 11:21:Ellen Simental RN) Pain Goal: 3 (10/03/2016 11:06:Ellen Simental RN) Pain Goal: 3 (10/03/2016 10:23:Ellen Simental RN) Pain Goal: 3 (10/03/2016 10:08:Ellen Simental RN) Pain Goal: 3 (10/03/2016 10:00:Ellen Simental RN) Pain Goal: 3 (10/03/2016 09:53:Ellen Simental RN) Pain Goal: 3 (10/03/2016 09:39:Ellen Simental RN) Pain Goal: 3 (10/03/2016 09:23:Ellen Simental RN) Pain Goal: 3 (10/03/2016 09:08:Ellen Simental RN) Pain Goal: 3 (10/03/2016 08:53:Ellen Simental RN) VAGINAL EXAM Dilatation (cm): 10.0 (10/03/2016 08:46:Ellen Simental RN) Dilatation (cm): 9.5 (10/03/2016 08:44:Ellen Simental RN) Effacement (%): 100 (10/03/2016 08:46:Ellen Simental RN) Effacement (%): 100 (10/03/2016 08:44:Ellen Simental RN) Station: 3 (10/03/2016 08:46:Ellen Simental RN) Station: 1 (10/03/2016 08:44:Ellen Simental RN) Membranes Rupture D/ (10/03/2016 08:52:Ellen Simental RN) ROM Method: Spontaneous (10/03/2016 08:52:Ellen Simenatl RN) Amniotic Fluid Color: Clear (10/03/2016 08:52:Ellen Simental RN) Amniotic Fluid Amount: Moderate (10/03/2016 08:52:Ellen Simental RN)
--- NOTE | 2016-10-04 10:47 | PDOC PROGRESS REPORT ---
Subjective-OB Subjective: Post Delivery Day: 1 30 year old. Denies any needs at this time, states pain well controlled, lochia is stable, voiding without difficulty Physical Exam (OB) Vital Signs: Temp Pulse Resp BP Pulse Ox 97.9 F 69 18 128/64 H 100 10/04/16 08:21 10/04/16 08:21 10/04/16 08:21 10/04/16 08:21 10/04/16 08:21 Intake & Output 10/03/16 10/04/16 10/05/16 06:59 06:59 06:59 Intake Total 600 Balance 600 Weight 90.72 kg - Lochia Lochia Amount: Scant < 10 ml Lochia Color: Rubra/Red - Abdomen Description: Tender Hernia Present: No Fundal Description: Firm, Midline Fundal Height: u/u - u/2 Objective-Diagnostic Laboratory: 10/04/16 06:58 10/03/16 10/04/16 09:39 06:58 WBC 7.1 RBC 4.05 Hgb 10.5 L Hct 31.8 L MCV 78 L MCH 25.8 L MCHC 32.9 RDW 16.2 H Plt Count 229 Blood Type O POSITIVE Antibody Screen NEGATIVE Assessment and Plan(PN) - Assessment and Plan (1) Limited care Qualifiers: Trimester: third trimester Qualified Code(s): O09.33 - Supervision of with insufficient care, third trimester Is this a current diagnosis for this admission?: YesPlan: routine pp care (2) Vaginal delivery Is this a current diagnosis for this admission?: YesPlan: routine pp care - Time Spent with Patient Time with patient: Less than 15 minutes Critical Time spent with patient: Less than 15 minutes Medications reviewed and adjusted accordingly: Yes - Disposition Anticipated Discharge: Home Within: within 24 hours
[2016-10-04] MEDS: ACETAMINOPHEN WITH CODEINE #3 TABLET PO PRN (11:38)
--- NOTE | 2016-10-04 16:46 | L&D Discharge Summary ---
OB Discharge Summary Datetime Report Generated by CPN: 10/04/2016 16:45 DISCHARGE DIAGNOSIS Gestation: 40.3 Number of Babies in Womb: 1 Parity: 5
--- NOTE | 2016-10-04 16:46 | L&D General Admission ---
General Admit Datetime Report Generated by [facility]: 10/04/2016 16:45 Height (in): 68 (10/04/2016 11:17:QS system process) Height (in): 68 (10/04/2016 09:03:QS system process) Hemoglobin: 10.5 L (10/04/2016 06:58:QS system process) Hematocrit: 31.8 L (10/04/2016 06:58:QS system process) MCV: 78 L (10/04/2016 06:58:QS system process)
--- NOTE | 2016-10-04 22:46 | L&D Discharge Summary ---
OB Discharge Summary Datetime Report Generated by CPN: 10/04/2016 22:45 DISCHARGE DIAGNOSIS Gestation: 40.3 Number of Babies in Womb: 1 Parity: 5
--- NOTE | 2016-10-04 22:46 | L&D General Admission ---
General Admit Datetime Report Generated by [facility]: 10/04/2016 22:45 Height (in): 68 (10/04/2016 11:17:QS system process) Height (in): 68 (10/04/2016 09:03:QS system process) Hemoglobin: 10.5 L (10/04/2016 06:58:QS system process) Hematocrit: 31.8 L (10/04/2016 06:58:QS system process) MCV: 78 L (10/04/2016 06:58:QS system process)
--- NOTE | 2016-10-05 04:46 | L&D Discharge Summary ---
OB Discharge Summary Datetime Report Generated by CPN: 10/05/2016 04:45 DISCHARGE DIAGNOSIS Gestation: 40.3 Number of Babies in Womb: 1 Parity: 5
--- NOTE | 2016-10-05 04:46 | L&D General Admission ---
General Admit Datetime Report Generated by [facility]: 10/05/2016 04:45 Height (in): 68 (10/04/2016 11:17:QS system process) Height (in): 68 (10/04/2016 09:03:QS system process) Hemoglobin: 10.5 L (10/04/2016 06:58:QS system process) Hematocrit: 31.8 L (10/04/2016 06:58:QS system process) MCV: 78 L (10/04/2016 06:58:QS system process)
--- NOTE | 2016-10-05 04:46 | L&D Admission Assessment ---
LD ADM ASMT Datetime Report Generated by [facility]: 10/05/2016 04:45 Weight (lb): 200 (10/04/2016 11:17:QS system process) Weight (lb): 200 (10/04/2016 09:03:QS system process) Weight (kg): 90.9 (10/04/2016 11:17:QS system process) Weight (kg): 90.9 (10/04/2016 09:03:QS system process) BMI: 30.4 (10/04/2016 11:17:QS system process) BMI: 30.4 (10/04/2016 09:03:QS system process)
[2016-10-05] MEDS: IBUPROFEN 800 MG TABLET PO SCH (05:43)
[2016-10-05 09:08] VITALS: BP 137/73
[2016-10-05] MEDS: FERROUS SULFATE 325 MG TABLET PO SCH (09:25)
[2016-10-05] MEDS: PRENATAL VITAMIN W-O CA NO5/FE FUMARATE/FA CAPSULE PO SCH (09:25)
[2016-10-05] MEDS: DOCUSATE SODIUM 100 MG CAPSULE PO SCH (09:26)
[2016-10-05] MEDS: SENNOSIDES/DOCUSATE 8.6-50 MG 1 EACH TABLET PO SCH (09:26)
--- NOTE | 2016-10-05 10:46 | PDOC DISCHARGE SUMMARY ---
Final Diagnosis Discharge Date: 10/05/16 - Final Diagnosis (1) Limited care Is this a current diagnosis for this admission?: Yes (2) Vaginal delivery Is this a current diagnosis for this admission?: Yes Discharge Data - Discharge Medication Home Medications: Docusate Sodium [Colace 100 mg Capsule] 100 mg PO BID #60 capsule 10/05/16 Ferrous Sulfate [Feosol 325 mg Tablet] 325 mg PO BID #60 tablet 10/05/16 Ibuprofen [Motrin 800 mg Tablet] 800 mg PO Q8 #60 tablet 10/05/16 Gestational Age: 40.3 Reason(s) for Admission: Onset of Labor, Group B Strep Positive Procedures: NST Intrapartum Procedure(s): Spontaneous Vaginal Delivery - [facility] Data Baby 1 Male at 1 minute: 9 at 5 minutes: 10 Weight: 4055 kg Home with Mother: Yes Complications: Yes - gbs +. untx - Diagnosis Test Laboratory: Temp Pulse Resp BP Pulse Ox 97.9 F 64 16 137/73 H 100 10/05/16 08:06 10/05/16 08:06 10/05/16 08:06 10/05/16 08:06 10/05/16 08:06 10/03/16 10/03/16 10/04/16 09:39 20:25 06:58 RBC 4.30 4.05 Hgb 11.1 L 10.5 L Hct 33.9 L 31.8 L Urine Opiates Screen UNCONFIRMED POSITIVE - Discharge information/Instructions Discharge Activity: Activity As Tolerated, No Lifting Over 10 Pounds, Pelvic Rest, No tub bath Discharge Diet: Regular Disposition: HOME, SELF-CARE Follow up with: [facility] in: 4, Weeks - depo @ d/c pp btl planed
--- NOTE | 2016-10-05 10:47 | L&D Discharge Summary ---
OB Discharge Summary Datetime Report Generated by CPN: 10/05/2016 10:45 DISCHARGE DIAGNOSIS Gestation: 40.3 Number of Babies in Womb: 1 Parity: 5
--- NOTE | 2016-10-05 10:47 | L&D General Admission ---
General Admit Datetime Report Generated by CPN: 10/05/2016 10:45 Height (in): 68 (10/04/2016 11:17:QS system process)
--- NOTE | 2016-10-05 10:47 | L&D Admission Assessment ---
LD ADM ASMT Datetime Report Generated by N: 10/05/2016 10:45 Weight (lb): 200 (10/04/2016 11:17:QS system process) Weight (kg): 90.9 (10/04/2016 11:17:QS system process) BMI: 30.4 (10/04/2016 11:17:QS system process)
[2016-10-05] MEDS ORDERED: MEDROXYPROGESTERONE ACET INJ 150 MG/1 ML VIAL IM ONE (11:00)
[2016-10-05] MEDS: ACETAMINOPHEN WITH CODEINE #3 TABLET PO PRN (11:54)
--- NOTE | 2016-10-05 16:46 | L&D Discharge Summary ---
OB Discharge Summary Datetime Report Generated by CPN: 10/05/2016 16:45 DISCHARGE DIAGNOSIS Gestation: 40.3 Number of Babies in Womb: 1 Parity: 5
--- NOTE | 2016-10-05 16:46 | L&D General Admission ---
General Admit Datetime Report Generated by CPN: 10/05/2016 16:45 Height (in): 68 (10/05/2016 10:46:QS system process)
--- NOTE | 2016-10-05 22:46 | L&D General Admission ---
General Admit Datetime Report Generated by CPN: 10/05/2016 22:45 Height (in): 68 (10/05/2016 10:46:QS system process)
--- NOTE | 2016-10-05 22:46 | L&D Discharge Summary ---
OB Discharge Summary Datetime Report Generated by CPN: 10/05/2016 22:45 DISCHARGE DIAGNOSIS Gestation: 40.3 Number of Babies in Womb: 1 Parity: 5
--- NOTE | 2016-10-06 04:47 | L&D Discharge Summary ---
OB Discharge Summary Datetime Report Generated by CPN: 10/06/2016 04:45 DISCHARGE DIAGNOSIS Gestation: 40.3 Number of Babies in Womb: 1 Parity: 5
--- NOTE | 2016-10-06 04:47 | L&D Admission Assessment ---
LD ADM ASMT Datetime Report Generated by [facility]: 10/06/2016 04:45 Weight (lb): 8921 (10/05/2016 10:46:QS system process) Weight (kg): 4055.0 (10/05/2016 10:46:QS system process) BMI: 1356.3 (10/05/2016 10:46:QS system process)
--- NOTE | 2016-10-06 04:47 | L&D General Admission ---
General Admit Datetime Report Generated by CPN: 10/06/2016 04:45 Height (in): 68 (10/05/2016 10:46:QS system process)
--- NOTE | 2016-10-06 10:46 | L&D Discharge Summary ---
OB Discharge Summary Datetime Report Generated by CPN: 10/06/2016 10:45 DISCHARGE DIAGNOSIS Gestation: 40.3 Number of Babies in Womb: 1 Parity: 5
--- NOTE | 2016-10-06 10:46 | L&D General Admission ---
General Admit Datetime Report Generated by CPN: 10/06/2016 10:45 Height (in): 68 (10/05/2016 10:46:QS system process)
--- NOTE | 2016-10-06 10:46 | L&D Admission Assessment ---
LD ADM ASMT Datetime Report Generated by N: 10/06/2016 10:45 Weight (lb): 8921 (10/05/2016 10:46:QS system process) Weight (kg): 4055.0 (10/05/2016 10:46:QS system process) BMI: 1356.3 (10/05/2016 10:46:QS system process)
--- NOTE | 2016-10-06 16:46 | L&D Discharge Summary ---
OB Discharge Summary Datetime Report Generated by CPN: 10/06/2016 16:45 DISCHARGE DIAGNOSIS Gestation: 40.3 Number of Babies in Womb: 1 Parity: 5
--- NOTE | 2016-10-06 22:46 | L&D Discharge Summary ---
OB Discharge Summary Datetime Report Generated by CPN: 10/06/2016 22:45 DISCHARGE DIAGNOSIS Gestation: 40.3 Number of Babies in Womb: 1 Parity: 5
--- NOTE | 2016-10-07 04:45 | L&D Discharge Summary ---
OB Discharge Summary Datetime Report Generated by CPN: 10/07/2016 04:45 DISCHARGE DIAGNOSIS Gestation: 40.3 Number of Babies in Womb: 1 Parity: 5
--- NOTE | 2016-10-07 10:46 | L&D Discharge Summary ---
OB Discharge Summary Datetime Report Generated by CPN: 10/07/2016 10:45 DISCHARGE DIAGNOSIS Gestation: 40.3 Number of Babies in Womb: 1 Parity: 5
--- NOTE | 2016-10-10 08:45 | Admission Physical ---
Datetime Report Generated by CPN: 10/10/2016 08:44 CURRENT ADMISSION Chief Complaint: Uterine Contractions Chief Complaint Other: SROM around 7am today, urge to push on the way to the hospital Indication for Induction- Other: n/a Admit Plan- Other: GBS + Limited PNC ALLERGIES Medication Allergies: No Medication Allergies: No Known Allergies (10/03/2015) Latex: No Latex Allergies OBSTETRICAL HISTORY EDC: 09/30/2016 00:00 : 6 Para: 5 Term: 4 : 1 SAB: 0 IAB: 0 Ectopic: 0 Livin Cesareans: 0 VBACs: 0 Multiple Births: 0 Gestational Diabetes: No Rh Sensitization: No Incompetent Cervix: No LYUDMILA: No Infertility: No ART Treatment: No Uterine Anomaly: No IUGR: No Hx Previous C/S: No Macrosomia: No Hx Loss/Stillborn: No PIH: Yes Hx : No Placenta Previa/Abruption: No Depression/PP Depression: No PTL/PROM: No Post Hemorrhage: No Current Procedures: Ultrasound; NST Obstetrical History Comments: G1- 2006 37 wks hx of Pre E G2- 2009 39 wks G3- 2010 40 wks G4- 2012 39 wks G5- 2013 39 wks G6- Current SEE RECORDS Alcohol: No Marijuana : No Cocaine: No Other Illicit Drugs: No Cigarettes: Never Smoker. [id number] MEDICAL HISTORY Diabetes: No Blood Transfusion: No Pulmonary Disease (Asthma, TB): No Breast Disease: No Hypertension: No Team Primary Care Physician Surgery: No Heart Disease: No Hosp/Surgery: No Autoimmune Disorder: No Anesthetic Complications: No Kidney Disease: No Abnormal Pap Smear: No Neuro/Epilepsy: No Psychiatric Disorders: No Other Medical Diseases: No Hepatitis/Liver Disease: No Significant Family History: No Varicosities/Phlebitis: No Trauma/Violence : No Thyroid Dysfunction: No INFECTIOUS HISTORY Gonorrhea: No Genital Herpes: No Chlamydia: No Tuberculosis: No Syphilis: No Hepatitis: No HIV/AIDS Exposure: No Rash or Viral Illness: No HPV: No PHYSICAL EXAM General: Normal HEENT: Deferred Neurologic: Normal Thyroid: Deferred Heart: Normal Lungs: Normal Breast: Deferred Back: Deferred Abdomen: Normal Genitourinary Exam: Normal Extremities: Deferred DTRs: Deferred Pelvic Type: Adequate VAGINAL EXAM Dilatation: 10 Effacement: 100 Station: 3 MEMBRANES Membranes: Ruptured Amniotic Fluid Color: Clear FETUS A EGA: 40.3 Monitoring: External US Presentation: Vertex Admit Comment: Pt arrived on L_D less than five minutes prior to delivery of Viable male, OA Did not obtain FHT, No GBS prophylaxis PLANS FOR LABOR AND DELIVERY Labor and Delivery: None Pain Management: None Feeding Preference: Formula Benefit of Breast Feed Discussed: Yes Circumcision: Yes INFORMED CONSENT Assignment: Melida Craig MD Signature: with User ID: Gina : with User ID: Gina
--- NOTE | 2016-10-10 08:45 | Admission Physical ---
Datetime Report Generated by Roger: 10/10/2016 08:44 Chief Complaint: Uterine Contractions Chief Complaint Other: SROM around 7am today, urge to push on the way to the hospital Indication for Induction- Other: n/a Medication Allergies: No Medication Allergies: No Known Allergies (10/03/2015) Latex: No Latex Allergies : 6 Para: 5
== END 2016-10-05 12:50 | disposition home or self-care (01) | DRG 775 ==
LOC: LR 08:54 → 2S 12:20
PROVIDERS: ADMIT Obstetrics & Gynecology; ATTEND Obstetrics & Gynecology
PROC: 10E0XZZ Delivery of Products of Conception, External Approach (ICD-10-PCS; principal; 2016-10-03)
PROC: 4A1H7CZ Monitoring of Products of Conception, Cardiac Rate, Via Natural or Artificial Opening (ICD-10-PCS; 2016-10-03)
PROC: 3E0234Z Introduction of Serum, Toxoid and Vaccine into Muscle, Percutaneous Approach (ICD-10-PCS; 2016-10-03)
DX: O99.824 Streptococcus B carrier state complicating childbirth (principal); O62.3 Precipitate labor; Z23 Encounter for immunization; Z3A.40 40 weeks gestation of pregnancy; Z37.0 Single live birth
CPT/HCPCS: 36415; 80307; 85025; 85027; 86592; 86850; 86900; 86901; 88307; 90707; J1050; J2590

== ENCOUNTER 2016-10-29 10:38 | Emergency (ER) | payer MEDICAID ==
[2016-10-29] MEDS ORDERED: KETOROLAC TROMETHAMINE 60 MG/2 ML SDV IM ONE (11:12)
[2016-10-29] MEDS ORDERED: ONDANSETRON 4 MG TAB.RAPDIS PO ONE (11:12)
--- NOTE | 2016-10-29 11:14 | ER Document Report ---
ED Medical Screen (RME) - General Mode of Arrival: Ambulatory Information source: Patient TRAVEL OUTSIDE OF THE [place] IN LAST 30 DAYS: No <FILIBERTO MCKEON - Last Filed: 10/29/16 11:56> <BHARGAV HUSAIN - Last Filed: 10/29/16 12:23> - General Chief Complaint: Possible Kidney Stone Stated Complaint: BAACK PAIN Time Seen by Provider: 10/29/16 11:00 Notes: Patient presents today with complaints of right flank pain beginning 3 hours prior to arrival. Patient reports she was driving down from [place] when the pain began. Patient states the pain radiates to the front. Patient has a history of kidney stones with her last one being in 2013. Patient is 3 weeks . Patient complains of nausea and vomiting. (FILIBERTO MCKEON) - Related Data Allergies/Adverse Reactions: No Known Allergies Allergy (Unverified 10/29/16 11:04) Past Medical History - General Last Menstrual Period: 3 weeks post Renal/ Medical History: Denies: Hx Peritoneal Dialysis - Immunizations Hx Diphtheria, Pertussis, Tetanus Vaccination: Yes <FILIBERTO MCKEON - Last Filed: 10/29/16 11:56> Review of Systems - Review of Systems Genitourinary: See HPI <BHARGAV HUSAIN - Last Filed: 10/29/16 12:23> Physical Exam - Vital signs Interpretation: Normal - General General appearance: Alert In distress: Moderate - in pain - Back Back: Tender - L flank <BHARGAV HUSAIN - Last Filed: 10/29/16 12:23> - Vital signs Vitals: Pulse Resp BP Pulse Ox 93 20 115/71 100 10/29/16 11:04 10/29/16 11:04 10/29/16 11:04 10/29/16 11:04 Course - Laboratory Result Diagrams: 10/29/16 12:06 10/29/16 12:06 <BHARGAV HUSAIN - Last Filed: 10/29/16 12:23> - Vital Signs Vital signs: Temp Pulse Resp BP Pulse Ox 98.9 F 100 18 115/71 96 10/29/16 11:07 10/29/16 11:07 10/29/16 11:07 10/29/16 11:07 10/29/16 11:07 Scribe Documentation - Scribe Written by Scribe:: Sallie Pulido, 10/29/2016 1158 acting as scribe for :: Curly <FILIBERTO MCKEON - Last Filed: 10/29/16 11:56>
--- NOTE | 2016-10-29 11:52 | ER Document Report ---
ED GI/ - General Mode of Arrival: Ambulatory Information source: Patient TRAVEL OUTSIDE OF THE [place] IN LAST 30 DAYS: No - HPI Patient complains to provider of: Flank pain Associated symptoms: Other - See above <KRISTINA HARDING - Last Filed: 10/29/16 11:47> <EMILI PARIKH - Last Filed: 11/03/16 10:35> - General Chief Complaint: Flank Pain Stated Complaint: flank pain Time Seen by Provider: 10/29/16 11:09 Notes: Patient is a 30 year old female who presents to the emergency department complaining of right sided flank pain onset around 0900 today while she was driving. Patient state the pain is constant. Patient also complains of nausea, vomiting, and vaginal bleeding from being 3 weeks after a natural vaginal . Patient denies dysuria. Patient denies any history of back problems, states she has had kidney stones in the past (most recent in 2013) but that they always passed before she got to the ED. Patient's last meal was sunflower seeds. (KRISTINA HARDING) - Related Data Allergies/Adverse Reactions: No Known Allergies Allergy (Unverified 10/29/16 11:04) Past Medical History - General Information source: Patient Last Menstrual Period: 3 weeks post - Social History Smoking Status: Unknown if Ever Smoked Family History: Reviewed & Not Pertinent Patient has suicidal ideation: No Patient has homicidal ideation: No - Immunizations Hx Diphtheria, Pertussis, Tetanus Vaccination: Yes <KRISTINA HARDING - Last Filed: 10/29/16 11:47> Review of Systems - Review of Systems Constitutional: No symptoms reported EENT: No symptoms reported Cardiovascular: No symptoms reported Respiratory: No symptoms reported Gastrointestinal: See HPI, Nausea, Vomiting Genitourinary: See HPI, Flank pain. denies: Dysuria Female Genitourinary: See HPI, Vaginal bleeding Musculoskeletal: No symptoms reported Skin: No symptoms reported Hematologic/Lymphatic: No symptoms reported Neurological/Psychological: No symptoms reported -: Yes All other systems reviewed and negative <KRISTINA HARDING - Last Filed: 10/29/16 11:47> Physical Exam - Vital signs Interpretation: Normal - General General appearance: Appears well, Alert - HEENT Head: Normocephalic, Atraumatic - Respiratory Respiratory status: No respiratory distress Chest status: Nontender Breath sounds: Normal Chest palpation: Normal - Cardiovascular Rhythm: Regular Heart sounds: Normal auscultation Murmur: No - Abdominal Inspection: Normal Distension: No distension Bowel sounds: Normal Tenderness: Nontender Organomegaly: No organomegaly - Back Back: Normal, Nontender - Extremities General upper extremity: Normal inspection General lower extremity: Normal inspection - Neurological Neuro grossly intact: Yes Cognition: Normal Orientation: AAOx4 [place] Coma Scale Eye Opening: Spontaneous [place] Coma Scale Verbal: Oriented [place] Coma Scale Motor: Obeys Commands [place] Coma Scale Total: 15 Speech: Normal - Psychological Associated symptoms: Normal affect, Normal mood - Skin Skin Temperature: Warm Skin Moisture: Dry Skin Color: Normal <KRISTINA HARDING - Last Filed: 10/29/16 11:47> Course - Laboratory Result Diagrams: 10/29/16 12:06 10/29/16 12:06 <EMILI PARIKH - Last Filed: 11/03/16 10:35> - Vital Signs Vital signs: Temp Pulse Resp BP Pulse Ox 98.4 F 54 L 16 140/81 H 99 10/29/16 16:09 10/29/16 16:09 10/29/16 16:09 10/29/16 16:09 10/29/16 16:09 - Laboratory Laboratory results interpreted by me: 10/29/16 10/29/16 10/29/16 12:06 12:06 12:15 Hgb 11.8 L MCH 25.7 L MCHC 31.7 L RDW 18.1 H Seg Neutrophils % 78.8 H Chloride 108 H Carbon Dioxide 21 L Glucose 124 H Urine Blood LARGE H Ur Leukocyte Esterase TRACE H Discharge <KRISTINA HARDING - Last Filed: 10/29/16 11:47> <EMILI PARIKH - Last Filed: 11/03/16 10:35> - Discharge Clinical Impression: hydronephrosis Condition: Stable Disposition: HOME, SELF-CARE Additional Instructions: Your CAT scan shows dilation of your ureter which is called hydronephrosis. Some of this can be normal when you're but your now . For this reason associated with the pain that you're having I'm giving you a urologist to follow up with I want you to call them first thing tomorrow morning follow-up with them in 2-3 days and follow-up with your primary care physician one to 2 days if you develop any increasing pain fever uncontrollable vomiting return mainly to the emergency department. Prescriptions: Hydrocodone/Acetaminophen [[place] 5-325 mg Tablet] 1 tab PO TID #12 tablet Nitrofurantoin/Nitrofuran Mac [Macrobid 100 mg Capsule] 1 tab PO BID #20 capsule Referrals: [facility] [Provider Group] (Call in a.m. to be seen in follow-up in 2-3 days return for increasing worsening or new symptoms) [facility] [Provider Group] (Call in a.m. for follow-up appointment to 3 days return for increasing worsening or new symptoms) Scribe Attestation: 10/29/16 15:58 I personally performed the services described in the documentation reviewed the documentation recorded by my scribe in my presence and it accurately and completely records my words and actions (EMILI PARIKH) Scribe Documentation - Scribe Written by Scribe:: giovanna Uribe, 10/29/16, 2496 acting as scribe for :: Shantanu <KRISTINA HARDING - Last Filed: 10/29/16 11:47>
[2016-10-29 12:24] LABS: ABSOLUTE LYMPHOCYTES (AUTO) 1.4 10^3/uL (0.5-4.7); ABSOLUTE MONOCYTES (AUTO) 0.7 10^3/uL (0.1-1.4); ABSOLUTE NEUT (AUTO) 7.8 10^3/uL (1.7-8.2); BASOPHILS % (AUTO) 0.1 % (0-2); EOSINOPHILS % (AUTO) 0.1 % (0-6); HEMATOCRIT 37.2 % (36.0-47.0); HEMOGLOBIN 11.8 g/dL (12.0-15.5); HGB HCT DIFFERENCE -1.8; LYMPHOCYTES % (AUTO) 13.9 % (13-45); MEAN CORPUSCULAR HEMOGLOBIN 25.7 pg (27.0-33.4); MEAN CORPUSCULAR HGB CONC 31.7 g/dL (32.0-36.0); MEAN CORPUSCULAR VOLUME 81 fl (80-97); MONOCYTES % (AUTO) 7.1 % (3-13); RED CELL DISTRIBUTION WIDTH 18.1 % (11.5-14.0); SEGMENTED NEUTROPHILS % (AUTO) 78.8 % (42-78); WHITE BLOOD COUNT 9.9 10^3/uL (4.0-10.5)
[2016-10-29 12:42] LABS: APPEARANCE,URINE SLIGHTLY-CLOUDY; BILIRUBIN,URINE NEGATIVE (NEGATIVE); GLUCOSE, URINE NEGATIVE (NEGATIVE); KETONES,URINE NEGATIVE (NEGATIVE); LEUKOCYTE ESTERASE,URINE TRACE (NEGATIVE); NITRITE,URINE NEGATIVE (NEGATIVE); PROTEIN,URINE NEGATIVE (NEGATIVE); URINE SPECIFIC GRAVITY 1.016; UROBILINOGEN,URINE NEGATIVE mg/dL (<2.0)
[2016-10-29 12:48] LABS: ANION GAP 14 (5-19); BLOOD UREA NITROGEN 10 mg/dL (7-20); CALCIUM 9.6 mg/dL (8.4-10.2); CARBON DIOXIDE 21 mmol/L (22-30); CHLORIDE 108 mmol/L (98-107); CREATININE RESULT 0.72 mg/dL (0.52-1.25); GLUCOSE 124 mg/dL (75-110); POTASSIUM 4.5 mmol/L (3.6-5.0)
[2016-10-29 16:12] VITALS: BP 140/81
== END 2016-10-29 16:17 | disposition home or self-care (01) ==
LOC: ER 10:38
DX: O90.9 Complication of the puerperium, unspecified (principal); M54.9 Dorsalgia, unspecified; Z87.442 Personal history of urinary calculi
CPT/HCPCS: 99284; 96372; 36415; 85025; 80048; 81001; 74176; J1885; S0119

== ENCOUNTER 2016-12-10 05:45 | Day surgery (SDC) | payer MEDICAID ==
[2016-12-07 10:51] LABS: APPEARANCE,URINE CLEAR; BILIRUBIN,URINE NEGATIVE (NEGATIVE); GLUCOSE, URINE NEGATIVE (NEGATIVE); KETONES,URINE NEGATIVE (NEGATIVE); LEUKOCYTE ESTERASE,URINE NEGATIVE (NEGATIVE); NITRITE,URINE NEGATIVE (NEGATIVE); PROTEIN,URINE NEGATIVE (NEGATIVE); URINE SPECIFIC GRAVITY 1.027; UROBILINOGEN,URINE NEGATIVE mg/dL (<2.0)
[2016-12-07 10:54] LABS: HEMATOCRIT 35.6 % (36.0-47.0); HEMOGLOBIN 11.3 g/dL (12.0-15.5); HGB HCT DIFFERENCE -1.7; MEAN CORPUSCULAR HEMOGLOBIN 25.9 pg (27.0-33.4); MEAN CORPUSCULAR HGB CONC 31.8 g/dL (32.0-36.0); MEAN CORPUSCULAR VOLUME 81 fl (80-97); RED BLOOD COUNT 4.37 10^6/uL (3.72-5.28); RED CELL DISTRIBUTION WIDTH 19.3 % (11.5-14.0); WHITE BLOOD COUNT 8.1 10^3/uL (4.0-10.5)
[~2016-12-10 05:45] MED LIST: LACTATED RINGERS 1000 ML IV PRN; LIDOCAINE 0.5% INJ-PF (5 MG/ML) 50 ML SDV SUBCUT PRN
[2016-12-10] MEDS ORDERED: FENTANYL CITRATE INJ/PF 250 MCG/5 ML AMPULE ONE (07:37)
[2016-12-10] MEDS ORDERED: MIDAZOLAM 2 MG/2 ML INJ ONE (07:37)
[2016-12-10] MEDS ORDERED: IBUPROFEN INJ 800 MG/8 ML VIAL IV ONE (07:38)
[2016-12-10] MEDS ORDERED: PROPOFOL INJ 200 MG/20 ML VIAL IV ONE (07:38)
[2016-12-10] MEDS ORDERED: MORPHINE SULFATE 10 MG/ML INJ ONE (07:38)
[2016-12-10] MEDS ORDERED: CEFAZOLIN INJ 1 GM VIAL ONE (08:02)
--- NOTE | 2016-12-10 08:53 | OPERATIVE REPORT E ---
Operative Report NAME: NEGIN SANTACRUZ : 1985 AGE: 31Y DATE OF SURGERY: 12/10/2016 ROOM: PREOPERATIVE DIAGNOSIS: Undesired fertility. POSTOPERATIVE DIAGNOSIS: Undesired fertility. SURGEON: JM JASON M.D. ANESTHESIA: Dr. Neal with general. FINDINGS: Normal uterus, tubes and ovaries. COMPLICATIONS: None. ESTIMATED BLOOD LOSS: 10 mL. TISSUE REMOVED OR ALTERED: None. PROCEDURE: Laparoscopic tubal cauterization. PROCEDURE IN DETAIL: The patient was taken to the operating room, prepared and draped in normal sterile fashion. In dorsal lithotomy position under sterile conditions, an in-and-out catheterization was performed of approximately 15 mL of dark clear urine. A speculum was placed into the vagina and a CO2 tenaculum was Used to grasped the anterior lip of the cervix. Hulka clamp was then placed through the cervix for uterine manipulation. Gloves were changes and attention was turned to the upper portion of the case, where an umbilical skin incision was made with a scalpel and carried through to the underlying layer of fascia with a Hemostat. A Veress needle was introduced to the peritoneal cavity and confirmation was confirmed with free flow sterile water through the Veress needle and an opening pressure of 4 mmHg. The abdomen was then inflated with approximately 2 liters of CO2 gas. The Veress needle was removed and the 5 mm trocar was placed through the incision, through which the laparoscopic camera was introduced. Under direct visualization, another 5 mm port was placed in the left lower quadrant for instrumentation. The patient was placed in Trendelenburg and the bowel swept away with blunt probe. The Kleppinger was then introduced in beginning with the left fallopian tube. This fallopian tube was well cauterized down to an fimbriated end starting at the fundus. This was repeated on the right fallopian tube without any difficulty. The instructions were removed and lower trocar was removed under direct visualization with good hemostasis noted. The abdomen was then deflated through the umbilical trocar and this was removed without difficulty. The skin was closed at both sites using 4-0 Vicryl. The patient tolerated the procedure well. Sponge, lap and needle counts were correct x2. Patient was taken to recovery in stable condition. DICTATING PHYSICIAN: JM JASON M.D. [id number] Y#: [id number] ID: [id number] JOB#: [id number] ACCT: [id number] cc:JM JASON M.D. >
[2016-12-10] MEDS ORDERED: OXYCODONE-ACETAMINOPHEN 5-325 MG TABLET ONE (09:39)
[2016-12-10] MEDS ORDERED: IBUPROFEN 800 MG TABLET PO PRN (10:00)
[2016-12-10] MEDS ORDERED: MORPHINE SULFATE 10 MG/ML INJ IM PRN (10:00)
[2016-12-10] MEDS ORDERED: OXYCODONE-ACETAMINOPHEN 5-325 MG TABLET PO PRN ×2 (10:01)
[2016-12-10 12:48] VITALS: BP 142/94
[2016-12-10] MEDS ORDERED: LIDOCAINE 2% INJ-PF (20 MG/ML) 10 ML AMPUL ONE (14:03)
[2016-12-10] MEDS ORDERED: GLYCOPYRROLATE INJ 0.4 MG/2 ML VIAL ONE (14:03)
[2016-12-10] MEDS ORDERED: ONDANSETRON HCL INJ/PF 4 MG/2 ML SDV ONE (14:03)
[2016-12-10] MEDS ORDERED: SUCCINYLCHOLINE CHLORIDE INJ 200 MG/10 ML VIAL ONE (14:03)
== END 2016-12-10 10:45 | disposition home or self-care (01) ==
LOC: OROUT 05:45
PROVIDERS: ATTEND Obstetrics & Gynecology
PROC: 0U574ZZ Destruction of Bilateral Fallopian Tubes, Percutaneous Endoscopic Approach (ICD-10-PCS; principal; 2016-12-10 07:30)
DX: Z30.2 Encounter for sterilization (principal); D64.9 Anemia, unspecified
CPT/HCPCS: 36415; 85027; 81005; 81025; 58670; J2250; J0690; J3010; J3490 ×2; J0330; J2405; J2704; J1741; 851; J2270